=== PATIENT | female | born 1985 | race Caucasian/White ===

== ENCOUNTER → 2016-07-31 | Outpatient (CLI) | payer BC ==
[~2016-07-31] MED LIST: IBUP-1050 PO; PRENTAB26 PO
[2016-08-03 15:28] LABS: CHLAMYDIA TRACH RNA*** NOT DETECTED (NOT DETECTED); GC (NEIS GONORRHOEAE)RNA** NOT DETECTED (NOT DETECTED)
== END | disposition home or self-care (01) ==
LOC: C.LABSPEC 14:47
PROVIDERS: ATTEND Obstetrics & Gynecology
DX: Z34.81 Encounter for supervision of other normal pregnancy, first trimester (principal)

== ENCOUNTER 2017-03-03 05:32 | Inpatient (IN) | payer BC, OTHER ==
--- NOTE | 2017-02-13 15:59 | HISTORY & PHYSICAL EXAMINATION ---
DATE OF ADMISSION: 02/13/2017 CHIEF COMPLAINT: Two previous C-sections and intrauterine at term. HISTORY OF PRESENT ILLNESS: The patient is a 31-year-old 4, para 2. She has had one spontaneous AB. General health is good. She was dated with a first trimester ultrasound. Her due date is 03/09/2017. She has had no problems. Her first delivery was in 2011, girl, 9 pounds, induction at 41 weeks, pushed for several hours, was unable to get the baby to descend and then underwent a primary low segment section. Her second in 2013, she had high estimated weight at 39 weeks and eventually underwent repeat low segment section. She had a girl, 9 pounds 10 ounces. She is presently set for a repeat section at 39 weeks with a diagnosis of macrosomia and cephalopelvic disproportion. PAST MEDICAL HISTORY: She has 2 girls in good health. ALLERGIES: No known drug allergies. PAST SURGICAL HISTORY: She has had 2 C-sections. She had an adenoidectomy. SOCIAL HISTORY: No smoking. No excessive alcohol intake and no alcohol intake during her . Works at [employer]. FAMILY HISTORY: Mom is 56 in good health. Father is 70, has had several myocardial infarction. She has 1 brother in good health. REVIEW OF SYSTEMS: HEAD: No symptoms of frequent severe headaches. EYES: No symptoms of blurred vision or double vision. EARS: No symptoms of frequent ear infections or difficulty hearing. NOSE: No symptoms of frequent nosebleeds or difficulty breathing through her nose. THROAT: No symptoms of frequent or severe sore throats or difficulty swallowing. RESPIRATORY SYSTEM: No history of asthma, chest pain, or shortness of breath. PHYSICAL EXAMINATION: GENERAL: Well-developed and well-nourished 31-year-old white female, alert and oriented x3 and cooperative, in no acute distress, appears her stated age. EYES: Conjunctivae are pink. Sclerae white. No evidence of jaundice. EARS: Had normal light reflex bilaterally. NOSE: Had normal mucosa. Septum is midline. There were no polyps. THROAT: No erythema or evidence of infection. Teeth are in good state of repair. HEAD: Normocephalic. Normal distribution of hair. NECK: Supple. Trachea midline. Thyroid is not enlarged. There is no adenopathy appreciated. Both carotids are of good intensity. CHEST: Clear to auscultation and percussion. No wheezes, rales or rhonchi appreciated. HEART: Had a regular rhythm. S1 and S2 are normal. BREASTS: Normal. ABDOMEN: Soft and nontender. It was consistent with a term sized fetus, estimated weight well over 8 pounds. There was a well-healed Pfannenstiel incision. PELVIC: Revealed the vertex to be floating. Cervix to be posterior and closed. MUSCULOSKELETAL: Revealed no calf tenderness. IMPRESSIONS OF THIS CASE: Status post 2 sections, macrosomia, cephalopelvic disproportion and term .
[2017-02-24 13:05] VITALS: BMI 26.0
--- NOTE | 2017-02-24 13:29 | PAT Medication Instructions ---
Service Date Feb 24, 2017. Current Home Medication List Multivit/Min/Iron/Fol Ac/Pren ( Vitamin), 1 TAB PO QPM Medication Instructions For Your Scheduled Surgery - Take the following medications as scheduled the night before surgery: Multivit/Min/Iron/Fol Ac/Pren ( Vitamin), 1 TAB PO QPM If you have any questions please call us at [phone] or [phone] or [phone]
[2017-02-24 14:12] LABS: BASO % 0.2 %; BASO ABS # 0.02 K/uL (0-0.2); EOS % 0.9 %; HEMATOCRIT 24.9 % (37-47); IG% 0.4 %; LYMPH % 14.4 %; LYMPH ABS # 1.34 K/uL (1.2-3.4); MEAN CELL VOLUME 78.5 fL (80-100); MEAN CORPUSCULAR HGB CONC 30.5 g/dl (32-36); MONO % 7.1 %; PLATELET COUNT 224 K/uL (130-400); RED BLOOD COUNT 3.17 M/uL (4.2-5.4); WHITE BLOOD COUNT 9.32 K/uL (4.8-10.8)
[2017-02-24 14:15] LABS: CALCIUM 8.6 mg/dl (8.5-10.1); CREATININE 0.62 mg/dl (0.60-1.20); POTASSIUM 3.7 mmol/L (3.5-5.1)
[2017-02-24 14:24] LABS: INR 0.9 (0.9-1.1); PARTIAL THROMBOPLASTIN RATIO 0.9; PROTHROMBIN TIME (PATIENT) 9.6 SECONDS (9.0-12.0)
[2017-02-24 14:42] LABS: COMPLETE YES; LARGE PLATELETS 1+; OVALOCYTES 1+
[2017-03-03] VITALS (16 sets, daily range): BP systolic 117–134; BP diastolic 73–86; PULSE 67–80; TEMP 36.4–36.8; O2SAT 96–99; Ht 167.6 cm; Wt 72.7 kg
[~2017-03-03] VITALS: Ht 167.6 cm; Wt 72.7 kg
[~2017-03-03 05:32] MED LIST changes: -IBUP-1050 PO
[2017-03-03] MEDS ORDERED: CITRIC ACID/SODIUM CITRATE 15 ML UDC PO SCH (06:00)
[2017-03-03] MEDS ORDERED: CEFOXITIN IV 2000 MG in DEXTROSE 5% 50ML IV SCH (06:00)
[2017-03-03 06:03] LABS: BASO % 0.3 %; BASO ABS # 0.03 K/uL (0-0.2); EOS % 0.9 %; HEMATOCRIT 26.7 % (37-47); IG% 0.4 %; LYMPH % 21.1 %; LYMPH ABS # 2.17 K/uL (1.2-3.4); MEAN CELL VOLUME 76.7 fL (80-100); MEAN CORPUSCULAR HEMOGLOBIN 23.9 pg (25-34); MEAN PLATELET VOLUME 10.8 fL (7.4-10.4); MONO % 7.5 %; NEUT % 69.8 %; PLATELET COUNT 239 K/uL (130-400); RED BLOOD COUNT 3.48 M/uL (4.2-5.4); WHITE BLOOD COUNT 10.27 K/uL (4.8-10.8)
[2017-03-03 06:06] LABS: MEAN CORPUSCULAR HGB CONC 31.1 g/dl (32-36)
[2017-03-03] MEDS: LACTATED RINGER'S 1000ML 1,000 ML IV SCH ×2 (06:06→06:57)
[2017-03-03 06:20] LABS: BUN/CREATININE RATIO 22.3 (10-20); CALCIUM 8.9 mg/dl (8.5-10.1); CREATININE 0.56 mg/dl (0.60-1.20); INR 0.9 (0.9-1.1); PARTIAL THROMBOPLASTIN RATIO 0.9; POTASSIUM 3.8 mmol/L (3.5-5.1); PROTHROMBIN TIME (PATIENT) 9.5 SECONDS (9.0-12.0)
[2017-03-03 07:25] LABS: COMPLETE YES; MICROCYTOSIS PRESENT
[2017-03-03] MEDS ORDERED: MoRPHine SULFATE PF 1 MG/ML 10 ML AMP/VIAL ONE (07:25)
[2017-03-03] MEDS ORDERED: FENTANYL CITRATE INJ 50 MCG/1 ML 2 ML VIAL ONE (07:25)
[2017-03-03] MEDS ORDERED: OXYTOCIN INJ 10 UNITS/ML VIAL ONE ×3 (07:26→08:12)
[2017-03-03] MEDS ORDERED: PHENYLEPHRINE 100MCG/ML 5ML SYR ONE (07:46)
[2017-03-03] MEDS ORDERED: ONDANSETRON INJ 2 MG/ML 2 ML VIAL ONE (07:54)
[2017-03-03] MEDS ORDERED: OXYTOCIN INJ 10 UNITS/ML VIAL IM ONE (08:13)
[2017-03-03] MEDS ORDERED: MoRPHine SULFATE 2 MG/ML CARP IV PRN (08:15)
[2017-03-03] MEDS ORDERED: NALOXONE HCL INJ 1 MG in SODIUM CHLORIDE 0.9% 1000ML 1,000 ML IV PRN (08:15)
[2017-03-03] MEDS ORDERED: LACTATED RINGER'S 1000ML 500 ML IV PRN (08:15)
[2017-03-03] MEDS ORDERED: NO NARCOTICS OR SEDATIVES SCH (08:15)
[2017-03-03] MEDS ORDERED: EpHEDrine SULFATE INJ 50 MG/ML AMP IV PRN (08:15)
[2017-03-03] MEDS ORDERED: SODIUM CHLORIDE 0.9% 1000ML 1,000 ML IV PRN (08:15)
[2017-03-03] MEDS ORDERED: ONDANSETRON INJ 2 MG/ML 2 ML VIAL IV PRN ×2 (08:15→08:45)
[2017-03-03] MEDS ORDERED: DC INTRASPINAL MORPHINE SCH (08:15)
[2017-03-03] MEDS ORDERED: MoRPHine SULFATE PF 1 MG/ML 10 ML AMP/VIAL EPI PRN (08:15)
[2017-03-03] MEDS ORDERED: MEPERIDINE HCL 25 MG/ML CARP IV PRN (08:15)
[2017-03-03] MEDS ORDERED: DiphenhydrAMINE HCL 50 MG/ML VIAL IV PRN ×2 (08:15→08:45)
[2017-03-03] MEDS ORDERED: NALOXONE HCL 0.4 MG/1 ML VIAL/CARP IV PRN (08:15)
[2017-03-03] MEDS ORDERED: NALOXONE HCL INJ 0.08 MG in SYRINGE 1.8 ML IV PRN (08:15)
[2017-03-03] MEDS ORDERED: KETOROLAC TROMETHAMINE 30 MG/ML VIAL IV. PRN (08:45)
[2017-03-03] MEDS ORDERED: SENNA 8.6 MG TAB PO PRN (08:45)
[2017-03-03] MEDS ORDERED: ZOLPIDEM TARTRATE 5 MG TAB PO PRN (08:45)
[2017-03-03] MEDS ORDERED: OXYCODONE/ACETAMINOPHEN 5-325 TAB PO PRN (08:45)
[2017-03-03] MEDS ORDERED: BENZOCAINE 20% AER SPR 82.5 GM CAN EXT PRN (08:45)
[2017-03-03] MEDS ORDERED: DIPHTHERIA/TETANUS/PERTUSSIS 0.5 ML SYR/VIAL IM. ONE (08:45)
[2017-03-03] MEDS ORDERED: MAGNESIUM HYDROXIDE SUSP 30 ML UDC PO PRN (08:45)
[2017-03-03] MEDS ORDERED: MEPERIDINE HCL 50 MG/ML CARP IV PRN ×2 (08:45)
[2017-03-03] MEDS ORDERED: SUPERCREAM 0.870 % 15GM JAR EXT PRN (08:45)
[2017-03-03] MEDS ORDERED: LANOLIN OINT EXT PRN ×2 (08:45)
[2017-03-03] MEDS ORDERED: HYDROCORTISONE ACETATE 25 MG SUPP PR PRN (08:45)
--- NOTE | 2017-03-03 08:45 | History & Physical Bridge Note ---
H&P Re-Evaluation Bridge Note: I have examined the patient, reviewed the History & Physical and in the interval since the performance of the History & Physical I have noted the following changes of clinical significance: No changes noted
--- NOTE | 2017-03-03 08:55 | OPERATIVE REPORT ---
DATE OF OPERATION: 03/03/2017 PROCEDURE: Repeat section. INDICATIONS FOR SURGERY: Two previous sections, macrosomia, and a history of cephalopelvic disproportion. POSTOPERATIVE DIAGNOSES: Same. Delivered live female infant. SURGEON: Calvin Hayes MD POKER MANAGER: Dr. Sinclair. ESTIMATED BLOOD LOSS: 400 mL. ANESTHESIA: Spinal. OPERATIVE FINDINGS AND PROCEDURE: The patient was brought to the OR table, correctly identified by armband and conversation. Spinal anesthesia was administered. Bryant catheter was inserted aseptically in the bladder connected to gravity drainage. Lower abdomen was painted with an alcohol based sterilizing solution, draped in the usual sterile fashion. Level of the anesthesia was tested and found to be adequate. An incision was made through her previous Pfannenstiel scar, carried down to the anterior fascia by sharp dissection. Hemostasis was secured by electrocauterization. Fascia was incised transversely from the underlying muscle by blunt and sharp dissection. Recti muscles were in the midline exposing the peritoneum, which was carefully raised and entered. Incision was made above the vesicouterine fold. Bladder was undermined bluntly and pushed out of the operative field. Lower uterine segment was scored with a knife and entered bluntly with the scissors. Clear amnionic fluid was seen coming through the incision at this time. A Vectis retractor was applied to the head and with fundal pressure, the head was delivered without difficulty. was suctioned through the mouth and the nose. Then, the body was delivered. Cord was clamped and cut and the was attended to by the drug safety specialist, who was scrubbed and present at time of delivery. Cord blood was taken. Placenta was removed manually. Uterus, tubes, and ovaries were brought out through the incision. Uterine cavity was wiped clean with a dry sponge. Ten units of Pitocin was injected into the myometrium. The myometrium was then approximated in layers. The muscular layer was approximated with continuous heavy duty chromic and the fascial layer was approximated over this with horizontal and vertical sutures of heavy duty Vicryl. Following this, hemostasis was excellent. Lower uterine segment was palpated and found to be intact. Peritoneal edges were restored with a continuous chromic gut suture. The pelvis was cleansed of all blood clots and debris. Uterus, tubes, and ovaries were reinserted into the abdominal cavity. A careful approximation anterior abdominal wall was performed. Peritoneum was closed with continuous mattress suture of chromic catgut. Recti muscles were approximated with interrupted [id number]-[id number] suture of chromic catgut. The fascia was closed with continuous interlocking suture of Vicryl on each side and tied in the midline. SubQ was approximated with plain and skin edges were approximated with staple clips. I attest to the content of the Intraoperative Record and any orders documented therein. Any exception s are noted below.
--- NOTE | 2017-03-03 08:57 | Anesthesiology Progress Note ---
Anesthesia Post Op Note Date & Time Mar 03, 2017 at 08:56 Notes Mental Status: alert / awake / arousable, participated in evaluation Pt Amnestic to Procedure: Yes Nausea / Vomiting: adequately controlled Pain: adequately controlled Airway Patency, RR, SpO2: stable & adequate BP & HR: stable & adequate Hydration State: stable & adequate Neuraxial Anesthesia: was administered, sensory block is resolving Anesthetic Complications: no major complications apparent
[2017-03-03] MEDS: SIMETHICONE 80 MG CHEW PO SCH ×4 (09:00→19:37)
[2017-03-03] MEDS: KETOROLAC TROMETHAMINE 30 MG/ML VIAL IV. PRN ×3 (09:38→23:31)
[2017-03-03] MEDS: NALBUPHINE HCL INJ 10 MG/ML AMP IV PRN ×2 (10:19→10:31)
[2017-03-03] MEDS: OXYTOCIN INJ 20 UNITS in LACTATED RINGER'S 1000ML 1,000 ML IV SCH ×2 (14:09→22:23)
[2017-03-03] MEDS: DOCUSATE SODIUM 100 MG CAP PO SCH (19:37)
[2017-03-04 00:40] VITALS: O2SAT 93
[2017-03-04 01:40] VITALS: O2SAT 97
[2017-03-04 04:25] VITALS: BP 120/74; PULSE 89; TEMP 36.8
[2017-03-04] MEDS: IBUPROFEN 600 MG TAB PO PRN ×4 (04:32→18:42)
[2017-03-04] MEDS: OXYCODONE/ACETAMINOPHEN 5-325 TAB PO PRN ×4 (05:12→18:42)
[2017-03-04 08:00] VITALS: BP 115/71; PULSE 84; TEMP 36.8; O2SAT 96
[2017-03-04] MEDS: DOCUSATE SODIUM 100 MG CAP PO SCH ×2 (08:22→19:51)
[2017-03-04] MEDS: SIMETHICONE 80 MG CHEW PO SCH ×4 (08:22→19:51)
[2017-03-04] MEDS: PRENATAL VITAMIN TAB PO SCH (08:22)
[2017-03-04] MEDS: FERROUS SULFATE 325 MG TAB PO SCH (08:22)
--- NOTE | 2017-03-04 08:54 | Progress Note ---
Subjective Mar 04, 2017. Subjective conversation w/ patient Ambulation: ambulating normally Voiding: no voiding problems Passing Gas: Yes Diet Tolerance: Regular Diet Lochia: Small Feeding Type: Breast Feeding Review of Systems Constitutional: + fever Objective Vital Signs Date Time Temp Pulse Resp B/P (MAP) Pulse Ox O2 Delivery O2 Flow Rate FiO2 03/04/17 08:00 96 Room Air 03/04/17 08:00 36.8 84 18 115/71 (86) 96 Room Air 03/04/17 04:25 36.8 89 18 120/74 (89) Room Air 03/04/17 01:40 18 97 03/04/17 00:40 18 93 03/03/17 23:30 97 Room Air 03/03/17 23:30 36.7 76 18 129/80 (96) 97 Room Air 03/03/17 23:30 18 97 03/03/17 22:40 16 97 03/03/17 22:00 18 96 03/03/17 21:30 18 98 03/03/17 20:30 16 97 03/03/17 19:30 18 96 03/03/17 19:30 36.8 80 18 117/73 (88) 96 Room Air 03/03/17 19:10 18 98 03/03/17 18:10 16 97 03/03/17 16:00 16 99 03/03/17 15:45 36.5 73 16 133/79 (97) 98 Room Air 03/03/17 15:45 98 Room Air 03/03/17 15:00 18 99 03/03/17 14:00 18 99 03/03/17 13:00 16 99 03/03/17 12:30 Room Air 03/03/17 12:02 36.4 67 16 130/82 (98) 97 03/03/17 12:02 16 97 03/03/17 11:05 71 16 134/86 (102) 99 03/03/17 11:00 16 99 Physical Exam General Appearance: WELL-APPEARING Respiratory/Chest: lungs clear Abdomen: normal bowel sounds, non tender Fundus: Firm, Non-Tender Incision Description: Clean, Dry & Intact Extremities: no pedal edema, no calf tenderness Laboratory Results Last 24 Hours Test 03/04/17 06:00 Assessment and Plan Post-Op Day#: 1 Continue Routine Care: bandage removed
[2017-03-04 09:18] LABS: BASO % 0.3 %; BASO ABS # 0.03 K/uL (0-0.2); EOS % 0.3 %; HEMATOCRIT 24.4 % (37-47); IG% 0.3 %; LYMPH % 9.8 %; LYMPH ABS # 1.14 K/uL (1.2-3.4); MEAN CELL VOLUME 77.2 fL (80-100); MEAN CORPUSCULAR HEMOGLOBIN 23.7 pg (25-34); MEAN CORPUSCULAR HGB CONC 30.7 g/dl (32-36); MEAN PLATELET VOLUME 10.6 fL (7.4-10.4); MONO % 5.3 %; PLATELET COUNT 215 K/uL (130-400); RED BLOOD COUNT 3.16 M/uL (4.2-5.4); WHITE BLOOD COUNT 11.66 K/uL (4.8-10.8)
[2017-03-04 10:01] LABS: COMPLETE YES; LARGE PLATELETS 1+; POIKILOCYTOSIS PRESENT
[2017-03-04 16:00] VITALS: BP 143/78; PULSE 80; TEMP 36.6
[2017-03-04 19:15] VITALS: BP 132/78; PULSE 80; TEMP 36.7
[2017-03-04] MEDS ORDERED: BISACODYL 5 MG TABEC PO ONE (22:00)
[2017-03-05] MEDS: IBUPROFEN 600 MG TAB PO PRN ×3 (00:44→15:40)
[2017-03-05] MEDS: OXYCODONE/ACETAMINOPHEN 5-325 TAB PO PRN ×5 (00:45→23:46)
[2017-03-05 01:20] VITALS: BP 134/76; PULSE 85; TEMP 37
[2017-03-05 07:00] VITALS: BP 124/78; PULSE 78; TEMP 36.9; O2SAT 97
[2017-03-05] MEDS: DOCUSATE SODIUM 100 MG CAP PO SCH ×2 (08:12→19:21)
[2017-03-05] MEDS: PRENATAL VITAMIN TAB PO SCH (08:12)
[2017-03-05] MEDS: SIMETHICONE 80 MG CHEW PO SCH ×4 (08:12→19:22)
[2017-03-05] MEDS: FERROUS SULFATE 325 MG TAB PO SCH (08:12)
[2017-03-05] MEDS ORDERED: BISACODYL 10 MG SUPP PR PRN (08:45)
--- NOTE | 2017-03-05 10:10 | Progress Note ---
Subjective Mar 05, 2017. Subjective conversation w/ patient Ambulation: ambulating normally Voiding: no voiding problems Passing Gas: Yes Diet Tolerance: Regular Diet Lochia: Small Feeding Type: Breast Feeding Review of Systems Constitutional: + fever Objective Vital Signs Date Time Temp Pulse Resp B/P (MAP) Pulse Ox O2 Delivery O2 Flow Rate FiO2 03/05/17 07:00 36.9 78 18 124/78 (93) 97 Room Air 03/05/17 01:20 37.0 85 16 134/76 (95) Room Air 03/05/17 01:20 Room Air 03/04/17 19:15 36.7 80 18 132/78 (96) Room Air 03/04/17 16:00 36.6 80 16 143/78 (99) Room Air 03/04/17 16:00 Room Air Physical Exam General Appearance: WELL-APPEARING Abdomen: normal bowel sounds, non tender Fundus: Firm, Non-Tender Incision Description: Clean, Dry & Intact Extremities: no pedal edema, no calf tenderness Assessment and Plan Post-Op Day#: 2
[2017-03-05 15:45] VITALS: BP 144/83; PULSE 87; TEMP 37; O2SAT 98
[2017-03-05 23:30] VITALS: BP 127/82; PULSE 77; TEMP 36.6; O2SAT 98
[2017-03-06] MEDS: IBUPROFEN 600 MG TAB PO PRN ×2 (02:31→09:41)
[2017-03-06] MEDS: OXYCODONE/ACETAMINOPHEN 5-325 TAB PO PRN (07:08)
[2017-03-06 08:00] VITALS: BP 122/75; PULSE 87; TEMP 36.7
[2017-03-06] MEDS: DOCUSATE SODIUM 100 MG CAP PO SCH (08:21)
[2017-03-06] MEDS: SIMETHICONE 80 MG CHEW PO SCH (08:21)
[2017-03-06] MEDS: FERROUS SULFATE 325 MG TAB PO SCH (08:21)
[2017-03-06] MEDS: PRENATAL VITAMIN TAB PO SCH (08:21)
--- NOTE | 2017-03-06 08:37 | Discharge Instructions ---
Discharge Instructions Date of Service Mar 06, 2017. Admission Reason for Admission: Repeat Discharge Discharge Diagnosis / Problem: term elective repeat Discharge Goals Goal(s): Routine recovery after Activity Recommendations Activity Limitations: as noted below Lifting Limitations: no more than 10 pounds Exercise/Sports Limitations: gradually increase as tolerated May Resume Sexual Activity: after follow-up appointment Shower/Bathe: no limitations Driving or Machine Use: resume 3 days after discharge . Instructions / Follow-Up Instructions / Follow-Up ACTIVITY RECOMMENDATIONS: * Gradual return to full activity over the next 2-3 weeks. * No lifting - nothing heavier than baby over the next 2-3 weeks. * Do not engage in vigorous exercise, sexual activity or sports until cleared by your physician. * Do not drive or operate any motorized equipment until cleared by your physician. * You may shower/bathe daily. BREAST CARE: If you are not breast feeding: * Wear a supportive bra 24 hours a day for one to two weeks. * Avoid stimulating your breasts and nipples as much as possible during the first few weeks after delivery. * When taking a shower, have the warm water hit your back, not breasts. * When your breasts feel full, apply ice packs. Usually three to four times a day helps ease the discomfort. * Take a mild pain medication (Tylenol/Motrin) when you are uncomfortable. If breast feeding: * Use breast milk to lubricate nipples. Lansinoh cream may be used for sore nipples. You do not need to remove cream prior to breast feeding. If using a different brand of cream, check the label for directions regarding removal of cream prior to nursing. * Wear a supportive bra. * If having problems with breasts or breast feeding, call a image consultant or your health care provider. OVER THE COUNTER MEDICATION: * For discomfort or pain, you may use Acetaminophen (Tylenol), Ibuprofen (Advil ), or Naproxen (Aleve) following the package directions. * For constipation you may use Colace following the package directions. SPECIAL CARE INSTRUCTIONS: When you are discharged from the hospital, it is important for you to follow the instructions listed below: * During the first week at home, you should be able to care for yourself and your baby. In addition, the usual light household activities are encouraged. * Limit your activities to the way you feel. Do not try to clean the house or move furniture. Be sensible. * If you actively engage in sports and have done so up until the time of your delivery, you may resume these activities as soon as you feel able. This may take up to one month or even longer. Use good judgment. * Continue to take your vitamins for at least six weeks after the of your baby. * Your diet need not be limited unless you were on a special diet before your delivery. Breast-feeding mothers need around 2500 calories per day and at least 64-80 ounces of fluid per day (8 to 10 glasses). * You should eat foods from the four major food groups. Crash diets or fad diets are to be avoided. Eating lean meats, fresh fruits and vegetables, low-fat dairy products, high fiber foods and a regular exercise program, will help you get back to your pre- weight without putting your health at risk. * Constipation is sometimes a problem after delivery. Take a mild laxative as needed. If breast feeding, Milk of Magnesia is acceptable to use. You may use a suppository or Fleets enema if no episiotomy. * A daily shower or tub bath is suggested. Be sure to thoroughly and gently dry the perineum. * A bloody vaginal discharge will usually continue until around four weeks post . A small amount of bleeding may continue for as long as six weeks. Vaginal discharge changes from the bright red bleeding after delivery to pink then brownish and finally yellowish-pink before becoming white and disappearing. * Bleeding may increase with activity. Your first period may come in 4-8 weeks. If you are breast feeding, your period may be delayed even longer. * Artemus (sex) can begin whenever both you and your partner feel comfortable and do not have any form of genital infection. It is recommended that you wait at least six weeks for internal and external healing to occur. If you have questions, please talk to your health care practitioner. A condom should be used to prevent infection and . * Foreplay, gentle intercourse and lubrication is very important the first several times to prevent pain. A water-based lubricant such as K-Y jelly or Astroglide may be used. * Tampons and/or Douching should be avoided until after six weeks check-up. * If you have RH negative blood and your baby is RH positive, you will receive RHOGAM by injection prior to discharge. The nurse will give you a card to keep with you that has the date and place that you received RHOGAM after delivery. * During your care, you had a Rubella screen done to check for the presence of rubella antibodies in your blood. If your test was negative, you will receive a Rubella vaccine prior to discharge. This vaccine may cause a fever, soreness at the injection site and flu-like symptoms. If these symptoms persist, notify your health care practitioner. is not advised for three months after a Rubella vaccine. * Verbalizes understanding of car seat law as reviewed with patient nursing. * Car Seat hand-out given and reviewed with patient by nursing. * Shaken baby information reviewed with patient by nursing. Call you doctor if: * Heavy bleeding (saturating several pads an hour) or passing clots the size of your fist. * A fever >101 degrees F (38.3 degrees C) on two occasions four hours apart and /or chills. * Unusual pain in the pelvic or vaginal areas. Pain should improve each day . * Call the doctor for any increased redness, drainage or swelling around the incision and any pain unrelieved by prescribed pain medication. * Any signs or symptoms of phlebitis (possible blood clots forming in the veins ): leg pain, warm, red or swollen area on leg. * "Baby Blues" lasting longer than two weeks. If you have any questions or concerns, call your health care practitioner at . FOLLOW-UP VISIT: * Incision check (staple removal) in 1 week. Please call doctor's office at to set up appointment. * Please call the office at to schedule a 6 week examination. It is important you keep this appointment. * It is important for you to make arrangements for either yearly or twice yearly check-ups thereafter. Current Hospital Diet Patient's current hospital diet: Regular OB Diet Discharge Diet Recommended Diet: Regular Diet Fluid Restriction: None Procedures Procedures Performed: Repeat caesarean section. Low uterine transverse incision. Delivery of live female child at 0801. Pending Studies Studies pending at discharge: no Medical Emergencies . Who to Call and When: Medical Emergencies: If at any time you feel your situation is an emergency, please call [phone] immediately. . Non-Emergent Contact Non-Emergency issues call your: Primary Care Provider . . "Provider Documentation" section prepared by Jordan Pascual. . VTE Core Measure Inpt VTE Proph given/why not?: Treatment not indicated, Treatment not tolerated
--- NOTE | 2017-03-06 08:39 | Surgery Progress Note ---
Surgery Progress Note Date of Service Mar 06, 2017. Subjective Post OP Day: 3 + feeling well, + ambulating, + flatus, + pain controlled, + diet Objective Vital Signs: Date Time Temp Pulse Resp B/P (MAP) Pulse Ox O2 Delivery O2 Flow Rate FiO2 03/06/17 08:00 36.7 87 18 122/75 (91) Room Air 03/05/17 23:30 98 Room Air 03/05/17 23:30 36.6 77 18 127/82 (97) Room Air 03/05/17 15:45 37.0 87 20 144/83 (103) 98 Room Air 03/05/17 15:45 Room Air General Appearance: no apparent distress Abdomen: non tender, non distended Incision(s): clean, dry, intact Extremities: non-tender, normal inspection, no pedal edema Assessment & Plan POD#3 discharged regular diet
[2017-03-06 10:30] VITALS: BP_DIAS 75; PULSE 87; TEMP 36.7
== END 2017-03-06 10:45 | disposition home or self-care (01) | DRG 766 ==
LOC: C.LD 05:32 → C.OBG 11:14 → EDSTATUS 13:43
PROVIDERS: ADMIT Obstetrics & Gynecology; ATTEND Obstetrics & Gynecology
PROC: 10D00Z1 Extraction of Products of Conception, Low, Open Approach (ICD-10-PCS; principal; 2017-03-03 07:30)
DX: O34.211 Maternal care for low transverse scar from previous cesarean delivery (principal); Z3A.39 39 weeks gestation of pregnancy; Z37.0 Single live birth

== ENCOUNTER 2017-03-25 00:28 | Emergency (ER) | payer BC, OTHER ==
[~2017-03-25] VITALS: Ht 172.7 cm; Wt 62.8 kg
[2017-03-25 00:36] VITALS: TEMP 36.7; Ht 172.7 cm; Wt 62.8 kg
[2017-03-25] MEDS ORDERED: LACTATED RINGER'S 1000ML 1,000 ML IV STA (00:57)
[2017-03-25 01:13] LABS: BASO % 0.5 %; BASO ABS # 0.04 K/uL (0-0.2); COMPLETE YES; EOS % 1.6 %; HEMATOCRIT 31.3 % (37-47); IG% 0.1 %; LYMPH % 28.2 %; LYMPH ABS # 2.41 K/uL (1.2-3.4); MEAN CELL VOLUME 76.9 fL (80-100); MEAN CORPUSCULAR HEMOGLOBIN 24.1 pg (25-34); MEAN CORPUSCULAR HGB CONC 31.3 g/dl (32-36); MEAN PLATELET VOLUME 9.9 fL (7.4-10.4); MONO % 6.1 %; NEUT % 63.5 %; PLATELET COUNT 373 K/uL (130-400); RED BLOOD COUNT 4.07 M/uL (4.2-5.4); WHITE BLOOD COUNT 8.55 K/uL (4.8-10.8)
[2017-03-25 01:15] LABS: ISTAT CREATININE 0.8 mg/dl (0.6-1.3); ISTAT HEMOGLOBIN 9.9 g/dl (12.0-16.0); ISTAT IONIZED CALCIUM 1.2 mmol/l (1.12-1.32)
[2017-03-25 01:18] VITALS: O2SAT 99
[2017-03-25 01:24] LABS: PARTIAL THROMBOPLASTIN RATIO 1.1; PROTHROMBIN TIME (PATIENT) 10.4 SECONDS (9.0-12.0)
[2017-03-25 01:36] LABS: BUN/CREATININE RATIO 19.8 (10-20); CALCIUM 8.9 mg/dl (8.5-10.1); CREATININE 0.79 mg/dl (0.60-1.20); POTASSIUM 3.6 mmol/L (3.5-5.1)
[2017-03-25 01:39] LABS: ALB/GLOB RATIO 0.7 (0.9-2)
[2017-03-25 03:02] LABS: URINE APPEARANCE CLEAR (CLEAR); URINE BILIRUBIN NEG (NEG); URINE COLOR YELLOW; URINE EPITHELIAL CELL AUTO 0-5 /lpf (0-5); URINE NITRITE NEG (NEG); URINE SPECIFIC GRAVITY 1.009 (1.000-1.030); UROBILINOGEN NEG (NEG); ZZUR CULT IF INDIC CLEAN CATCH NO
[2017-03-25 03:03] LABS: MANUAL MICROSCOPIC REQUIRED? NO; REVIEW REQ? NO
--- NOTE | 2017-03-25 04:10 | EMERGENCY ROOM VISIT NOTE ---
History First contact with patient: 00:46 Chief Complaint: ED VAG BLEEDING Stated Complaint: LOOSING LOTS OF BLOOD History of Present Illness The patient is a 31 year old female who presents to the Emergency Room with complaints of heavy vaginal bleeding for the past few hours at a [address] Hayes is her MONOTYPE MECHANIC. . No complications with the C- section. Patient states she's had minimal bleeding since the and then tonight was much worse. She felt slightly lightheaded. Patient denies chest pain, dyspnea, back pain, abdominal pain, urinary symptoms, fever, chills. No injury or intercourse since the . Review of Systems See HPI for pertinent positives & negatives. A total of 10 systems reviewed and were otherwise negative. Past Medical/Surgical History none Social History Smoking Status: Never Smoker Smokeless Tobacco Use: No Alcohol Use: occasionally Drug Use: none Marital Status: Housing Status: lives with family Occupation Status: [employer] student Current/Historical Medications Scheduled Multivit/Min/Iron/Fol Ac/Pren ( Vitamin), 1 TAB PO QPM Physical Exam Vital Signs Date Time Temp Pulse Resp B/P (MAP) Pulse Ox O2 Delivery O2 Flow Rate FiO2 03/25/17 02:48 79 16 124/77 99 Room Air 03/25/17 01:18 99 Room Air 03/25/17 00:36 36.7 96 20 144/88 100 Room Air Physical Exam VITALS: Vitals are noted on the nurse's note and reviewed by myself. Vital signs stable. GENERAL: Pleasant female, in no acute distress, nondiaphoretic, well-developed well-nourished. SKIN: Capillary reflex less than 2 seconds. HEENT: Normocephalic. PERRLA. EOMI. Nares patent. Mucous membranes moist. Neck is supple without nuchal rigidity. HEART: Regular rate and rhythm without murmurs gallops or rubs. LUNGS: Clear to auscultation bilaterally without wheezes, rales or rhonchi. No retractions or accessory muscle use. ABDOMEN: Positive bowel sounds x 4. Normal tympanic percussion. Soft, nontender, without masses or organomegaly. Prado sign negative. No guarding or rebound tenderness. No CVA tenderness exam: Normal external female genitalia, minimal blood in the vault, os is closed. Airline Customer Service Agent present. MUSCULOSKELETAL: No gross musculoskeletal defects. NEURO: Patient was alert and oriented to person place and time. Normal sensation to light and sharp touch. No focal neurological deficits. Medical Decision & Procedures Laboratory Results 03/25/17 00:55 Red Blood Count 4.07, Mean Corpuscular Volume 76.9, Mean Corpuscular Hemoglobin 24.1, Mean Corpuscular Hemoglobin Concent 31.3, Mean Platelet Volume 9.9, Neutrophils (%) (Auto) 63.5, Lymphocytes (%) (Auto) 28.2, Monocytes (%) (Auto) 6.1, Eosinophils (%) (Auto) 1.6, Basophils (%) (Auto) 0.5, Neutrophils # (Auto) 5.43, Lymphocytes # (Auto) 2.41, Monocytes # (Auto) 0.52, Eosinophils # (Auto) 0.14, Basophils # (Auto) 0.04 03/25/17 00:55 Test 03/25/17 00:55 03/25/17 01:03 03/25/17 02:06 White Blood Count 8.55 K/uL (4.8-10.8) Red Blood Count 4.07 M/uL (4.2-5.4) Hemoglobin 9.8 g/dL (12.0-16.0) Hematocrit 31.3 % (37-47) Mean Corpuscular Volume 76.9 fL (80-100) Mean Corpuscular Hemoglobin 24.1 pg (25-34) Mean Corpuscular Hemoglobin Concent 31.3 g/dl (32-36) Platelet Count 373 K/uL (130-400) Mean Platelet Volume 9.9 fL (7.4-10.4) Neutrophils (%) (Auto) 63.5 % Lymphocytes (%) (Auto) 28.2 % Monocytes (%) (Auto) 6.1 % Eosinophils (%) (Auto) 1.6 % Basophils (%) (Auto) 0.5 % Neutrophils # (Auto) 5.43 K/uL (1.4-6.5) Lymphocytes # (Auto) 2.41 K/uL (1.2-3.4) Monocytes # (Auto) 0.52 K/uL (0.11-0.59) Eosinophils # (Auto) 0.14 K/uL (0-0.5) Basophils # (Auto) 0.04 K/uL (0-0.2) RDW Standard Deviation 47.6 fL (36.4-46.3) RDW Coefficient of Variation 16.9 % (11.5-14.5) Immature Granulocyte % (Auto) 0.1 % Immature Granulocyte # (Auto) 0.01 K/uL (0.00-0.02) Prothrombin Time 10.4 SECONDS (9.0-12.0) Prothromb Time International Ratio 1.0 (0.9-1.1) Activated Partial Thromboplast Time 27.5 SECONDS (21.0-31.0) Partial Thromboplastin Ratio 1.1 Est Creatinine Clear Calc Drug Dose 101.4 ml/min Estimated GFR () 114.8 Estimated GFR (Non- 99.1 BUN/Creatinine Ratio 19.8 (10-20) Calcium Level 8.9 mg/dl (8.5-10.1) Total Bilirubin 0.4 mg/dl (0.2-1) Aspartate Amino Transf (AST/SGOT) 13 U/L (15-37) Alanine Aminotransferase (ALT/SGPT) 15 U/L (12-78) Alkaline Phosphatase 119 U/L (45-117) Total Protein 7.8 gm/dl (6.4-8.2) Albumin 3.3 gm/dl (3.4-5.0) Globulin 4.5 gm/dl (2.5-4.0) Albumin/Globulin Ratio 0.7 (0.9-2) Bedside Hemoglobin 9.9 g/dl (12.0-16.0) Bedside Hematocrit 29 % (37-47) Bedside Sodium 139 mEq/L (135-144) Bedside Potassium 3.7 mEq/L (3.3-5.0) Bedside Chloride 101 mEq/L (101-112) Bedside Total CO2 27 mEq/l (24-31) Anion Gap 16.0 mmol/L (16-25) Bedside Blood Urea Nitrogen 15 mg/dl (7-18) Bedside Creatinine 0.8 mg/dl (0.6-1.3) Bedside Glucose (other) 113 mg/dl (70-99) Bedside Ionized Calcium ([place]) 1.20 mmol/l (1.12-1.32) Urine Color YELLOW Urine Appearance CLEAR (CLEAR) Urine pH 7.0 (4.5-7.5) Urine Specific [place] 1.009 (1.000-1.030) Urine Protein NEG (NEG) Urine Glucose (UA) NEG (NEG) Urine Ketones NEG (NEG) Urine Occult Blood 2+ (NEG) Urine Nitrite NEG (NEG) Urine Bilirubin NEG (NEG) Urine Urobilinogen NEG (NEG) Urine Leukocyte Esterase SMALL (NEG) Urine WBC (Auto) 1-5 /hpf (0-5) Urine RBC (Auto) 0-4 /hpf (0-4) Urine Hyaline Casts (Auto) 0 /lpf (0-5) Urine Epithelial Cells (Auto) 0-5 /lpf (0-5) Urine Bacteria (Auto) NEG (NEG) Medications Administered Medications (Trade) Dose Ordered Sig/Natalie Route Start Time Stop Time Status Last Admin Dose Admin Lactated Ringer's 1,000 ml @ 0 mls/hr Q0M STAT IV 03/25/17 00:57 03/25/17 00:58 DC 03/25/17 01:23 999 MLS/HR ED Course Prior records/ancillary studies reviewed. Triage Nursing notes reviewed. Additional history obtained from the family. The patient's history was concerning for vaginal bleeding status post Differential diagnosis: Etiologies such as retained products of conception, menstrual cycle, endometritis, dysfunction uterine bleeding, bleeding dyscrasia, trauma, infection, as well as others were entertained. Physical examination: As above. Vitals signs revealed stable ER treatment provided: IV fluids On reassessment the patient felt better. Diagnostic interpretation by me: The labs revealed B+ blood type. Improving anemia Imaging studies: Ultrasound as above US PELVIS: Compared with 04/22/11. History of 03/03/17 Boggy prominent uterus. Retroverted uterus. Endometrial stripe thickness within normal limits. No vascularity to suggest RPOC. Focal hypoechoic 1.9 x 1.3 x 3.4 cm l region anterior lower uterus segment, likely postsurgical region of . Maybe a small hematoma or seroma. Hypervascular lesion in the left uterus measuring 5.4 x 2.7 x 2.4 cm, may be adnexal versus possible fibroid. Possible pelvic congestion syndrome. The ovaries are not visualized due to bowel gas. This appears to be consistent with dysfunctional uterine bleeding. Patient's anemia was improving. She had minimal bleeding on exam. Stable vital signs. She did not have an acute abdomen on exam. She is advised to follow-up with OB/ AUTO BODY REPAIR ESTIMATOR a few days or here in the ER sooner for heavy bleeding, fevers, weakness, worsening signs or symptoms or as needed. By the evaluation outlined above emergent etiologies such as bleeding dyscrasia, ectopic , trauma, as well as others were deemed relatively unlikely. The pt informed about the findings as listed above. All questions were answered and pleased with the treatment. Return instructions were outlined and the patient was discharged in stable condition. Referral: The patient was referred to MONOTYPE MECHANIC for follow-up in 2 to 3 days for a recheck of her current condition. Case reviewed with my attending. Medical Decision as above Medication Reconcilliation Current Medication List: was personally reviewed by me Blood Pressure Screening Patient's blood pressure: Elevated blood pressure Blood pressure disposition: Elevated BP felt to be situational Impression Primary Impression: Dysfunctional uterine bleeding Departure Information Dispostion Home / Self-Care Condition GOOD Referrals No Doctor, Assigned (PCP) Patient Instructions My [facility] Additional Instructions Rest. Stay well hydrated. No strenuous activity or intercourse until cleared by MONOTYPE MECHANIC. Acetaminophen(Tylenol) may be used for fever or pain. Use 1000mg every six hours as needed. Avoid using more than 3000mg in a 24 hour period. Rest and drink plenty of fluids as tolerated. Continue current medications. Return to the ER immediately for worsening or persistent heavy vaginal bleeding , abdominal pain, vomiting, fevers, chest pains, difficulty breathing, worsening of your condition, or as needed. Follow up with your MONOTYPE MECHANIC in 2-3 days for a recheck of your current condition.
[2017-03-25 04:17] VITALS: BP 126/72; PULSE 80; O2SAT 98
--- NOTE | 2017-03-25 06:53 | DIAGNOSTIC IMAGING REPORT ---
PELVIC COMPLETE NON OB HISTORY: 31 years-old Female c section 3 weeks ago, heavy bleed/pain acute vaginal bleeding with history of on 03/03/2017 COMPARISON: Pelvic ultrasound 04/22/2011 TECHNIQUE: Multiple real-time sonographic images of the deep pelvic structures were obtained transabdominally assessing grayscale appearance and color Doppler flow. Transvaginal images were not obtained. FINDINGS: Retroflexed uterus measures 10.9 x 6.0 x 6.0 cm. ill-defined area of decreased echogenicity is seen within the anterior aspect of the lower uterine segment, 1.9 x 1.3 x 3.4 cm as seen on image 16. There is a focal area of increased flow within the region of the left uterus and left adnexa without discrete masses identified suggesting prominent vascularity. Endometrium measures 0.5 cm. No evidence of retained products of conception. Ovaries obscured by bowel gas. No significant free pelvic fluid. IMPRESSION: 1. Normal sonographic appearance of the endometrium without evidence of retained products of conception. 2. retroflexed uterus with a ill-defined hypoechoic region of the anterior lower uterine segment measuring up to 3.4 cm within the region of the scar suggesting hematoma or seroma. 3. Ill-defined area of increased vascularity within the region of the left uterus/left adnexum suggests prominent adnexal vascularity without discrete mass identified. Pelvic venous congestion syndrome is a differential consideration. 4. Bilateral ovaries obscured by bowel gas. The above report was generated using voice recognition software. It may contain grammatical, syntax or spelling errors. Electronically signed by: Juvenal Lang M.D. 03/25/2017 6:51 AM Dictated Date/Time: 03/25/2017 6:44 AM
== END 2017-03-25 04:23 | disposition home or self-care (01) ==
LOC: C.EDB 00:29 → C.EDA 04:23
DX: N93.8 Other specified abnormal uterine and vaginal bleeding (principal)

== ENCOUNTER 2017-03-30 17:06 | Emergency (ER) | payer BC, OTHER ==
[~2017-03-30] VITALS: Ht 180.3 cm; Wt 65.0 kg
[~2017-03-30 17:06] MED LIST changes: +NORETHINDRONE ACETATE 5 MG TAB PO SCH
[2017-03-30 17:10] VITALS: Ht 180.3 cm; Wt 65.0 kg
[2017-03-30] MEDS ORDERED: KETOROLAC TROMETHAMINE 30 MG/ML VIAL IV STA (17:17)
[2017-03-30] MEDS ORDERED: SODIUM CHLORIDE 0.9% 1000ML 1,000 ML IV STA (17:17)
--- NOTE | 2017-03-30 17:25 | EMERGENCY ROOM VISIT NOTE ---
History Report prepared by Reece: Angelica Espinosa Under the Supervision of: Dr. Owne Fowler M.D. 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 The patient recently had a section without complications. The patient reports that she suddenly felt abdominal pain and increased vaginal bleeding. She currently rates her pain a 5/10 in severity. After cleaning up the blood from the bathroom, her helped her to the bed. She suddenly felt increased nausea, dizziness, a whistle in her ears, and then she passed out on the bed. She denies any head injuries, urinary symptoms, vomiting, or diarrhea. She was recently seen in the ED March 25, 2017 for similar symptoms. She notes /A1. Source of History: patient Onset: March 03, 2017 SOLUTIONS DEVELOPMENT ANALYST Position: other (vagina) Symptom Intensity: 5/10 Quality: other (vaginal bleeding) Timing: intermittent Associated Symptoms: + nausea, + abdominal pain, No vomiting, No diarrhea, No urinary symptoms Note: She notes increased vaginal bleeding. She notes dizziness, a whistle in my ears, and syncope. She denies any head injuries. Review of Systems See HPI for pertinent positives & negatives. A total of 10 systems reviewed and were otherwise negative. Past Medical & Surgical Medical Problems: (1) Migraine (2) Previous section complicating (3) PREVIOUS CESAREANSECTION (4) PREVIOUS CESAREANSECTION Family History No pertinent family history reported. Social History Smoking Status: Never Smoker Alcohol Use: occasionally Drug Use: none Marital Status: Housing Status: lives with family Occupation Status: [employer] student Current/Historical Medications Scheduled Iron-Vitamin C (Iron 100/C), 1 TAB PO DAILY Multivit/Min/Iron/Fol Ac/Pren ( Vitamin), 1 TAB PO QPM Allergies Coded Allergies: [place] (Verified Allergy, Unknown, itchiness in throat and tongue, ) [place] (Verified Allergy, Unknown, itchiness throat and tongue and some swelling, 03/30/17) Physical Exam Vital Signs Date Time Temp Pulse Resp B/P (MAP) Pulse Ox O2 Delivery O2 Flow Rate FiO2 03/30/17 19:40 36.8 90 16 119/67 99 Room Air 12/17/17 17:45 86 03/30/17 17:10 103 16 108/72 99 Room Air Physical Exam GENERAL: Patient is in no acute distress. HEENT: No acute trauma, normocephalic atraumatic, mucous membranes moist, no nasal congestion, no scleral icterus. NECK: No stridor, no adenopathy, no meningismus, trachea is midline. LUNGS: Clear to auscultation bilaterally, no wheeze, no rhonchi, breath sounds equal. HEART: Without murmurs gallops or rubs, regular rate and rhythm. ABDOMEN: Soft, tender to lower abdomen/pelvis bilaterally, bowel sounds positive , no hernias, no peritonitis. VAGINAL: (Female coffee shop manager present) Removed a large clot from vaginal vault; suction, q-tips, and ring forceps were used. Bleeding from cervix is minimal. EXTREMITIES: No cyanosis or edema, full range of motion of all the joints without pain or difficulty, no signs for acute trauma. NEUROLOGIC: Oriented x 3, no acute motor or sensory deficits, no focal weakness. SKIN: No rash, no jaundice, no diaphoresis. Medical Decision & Procedures ER Provider Diagnostic Interpretation: Radiology results as stated below per my review and radiologist interpretation: PELVIC COMPLETE NON OB CLINICAL HISTORY: 31 years-old Female presenting with s/p March 03, heavy vaginal bleeding. TECHNIQUE: Real-time grayscale and color and spectral Doppler ultrasound imaging of the pelvis was performed using a transabdominal probe. COMPARISON: 03/25/2017. FINDINGS: Uterus: Heterogeneous with prominent vascularity on color Doppler, expected in the period. Retroverted. Focal hypodensity along the anterior aspect of the lower uterine segment from section with expected seroma/hematoma. The uterus measures 9.7 x 5.2 x 6.9 cm. Endometrial stripe measures 6 mm in thickness. Endometrium without focal increased vascularity to suggest retained products of conception. Cervix normal. Right adnexa: Right ovary normal. Right ovary measures 2.0 x 1.9 x 1.7 cm. Normal color Doppler flow and arterial and venous waveforms within the ovarian parenchyma. Left adnexa: Left ovary normal. Left ovary measures 3.4 x 1.6 x 1.4 cm. Normal color Doppler flow and arterial and venous waveforms within the ovarian parenchyma. Other: No free fluid. IMPRESSION: Expected appearance of the uterus with hyperemia and surgical scar. No evidence of retained products of conception allowing for transabdominal technique. Electronically signed by: Fahad Hughes M.D. 03/30/2017 6:48 PM Dictated Date/Time: 03/30/2017 6:43 PM Laboratory Results 03/30/17 17:30 Red Blood Count 3.97, Mean Corpuscular Volume 76.1, Mean Corpuscular Hemoglobin 23.2, Mean Corpuscular Hemoglobin Concent 30.5, Mean Platelet Volume 9.9, Neutrophils (%) (Auto) 63.8, Lymphocytes (%) (Auto) 27.8, Monocytes (%) (Auto) 6.3, Eosinophils (%) (Auto) 1.6, Basophils (%) (Auto) 0.4, Neutrophils # (Auto) 5.18, Lymphocytes # (Auto) 2.26, Monocytes # (Auto) 0.51, Eosinophils # (Auto) 0.13, Basophils # (Auto) 0.03 03/30/17 17:30 Test 03/30/17 17:30 03/30/17 17:55 White Blood Count 8.12 K/uL (4.8-10.8) Red Blood Count 3.97 M/uL (4.2-5.4) Hemoglobin 9.2 g/dL (12.0-16.0) Hematocrit 30.2 % (37-47) Mean Corpuscular Volume 76.1 fL (80-100) Mean Corpuscular Hemoglobin 23.2 pg (25-34) Mean Corpuscular Hemoglobin Concent 30.5 g/dl (32-36) Platelet Count 348 K/uL (130-400) Mean Platelet Volume 9.9 fL (7.4-10.4) Neutrophils (%) (Auto) 63.8 % Lymphocytes (%) (Auto) 27.8 % Monocytes (%) (Auto) 6.3 % Eosinophils (%) (Auto) 1.6 % Basophils (%) (Auto) 0.4 % Neutrophils # (Auto) 5.18 K/uL (1.4-6.5) Lymphocytes # (Auto) 2.26 K/uL (1.2-3.4) Monocytes # (Auto) 0.51 K/uL (0.11-0.59) Eosinophils # (Auto) 0.13 K/uL (0-0.5) Basophils # (Auto) 0.03 K/uL (0-0.2) RDW Standard Deviation 46.5 fL (36.4-46.3) RDW Coefficient of Variation 16.7 % (11.5-14.5) Immature Granulocyte % (Auto) 0.1 % Immature Granulocyte # (Auto) 0.01 K/uL (0.00-0.02) Anion Gap 7.0 mmol/L (3-11) Est Creatinine Clear Calc Drug Dose 97.5 ml/min Estimated GFR () 105.1 Estimated GFR (Non- 90.7 BUN/Creatinine Ratio 27.7 (10-20) Calcium Level 8.4 mg/dl (8.5-10.1) Total Bilirubin 0.4 mg/dl (0.2-1) Aspartate Amino Transf (AST/SGOT) 17 U/L (15-37) Alanine Aminotransferase (ALT/SGPT) 18 U/L (12-78) Alkaline Phosphatase 105 U/L (45-117) Total Protein 7.3 gm/dl (6.4-8.2) Albumin 3.2 gm/dl (3.4-5.0) Globulin 4.1 gm/dl (2.5-4.0) Albumin/Globulin Ratio 0.8 (0.9-2) Prothrombin Time 10.4 SECONDS (9.0-12.0) Prothromb Time International Ratio 1.0 (0.9-1.1) Activated Partial Thromboplast Time 22.4 SECONDS (21.0-31.0) Partial Thromboplastin Ratio 0.9 Laboratory results reviewed by me. Medications Administered Medications (Trade) Dose Ordered Sig/Natalie Route Start Time Stop Time Status Last Admin Dose Admin Sodium Chloride 1,000 ml @ 999 mls/hr Q1H1M STAT IV 03/30/17 17:17 03/30/17 18:17 DC 03/30/17 17:33 999 MLS/HR ECG Indication: other (vaginal bleeding) Rate (beats per minute): 87 Rhythm: normal sinus Findings: no acute ischemic change, no ectopy ED Course 1713: The patient was evaluated in room C9. A complete history and physical exam was performed. 1717: Ordered Toradol 30 mg IV and NSS 1,000 ml @ mls/hr IV 1744: I reassessed the patient at this time. I performed a vaginal exam with a female nurse coffee shop manager present. Please see vaginal exam note. 1904: I reassessed the patient at this time. She is feeling better and resting comfortably. 1943: I spoke with Dr. Hayes, ANALYTICAL LEAD. We discussed the patients case. The patient will follow up with him tomorrow. 1944: Ordered Aygestin 5 mg PO 1949: I reassessed the patient at this time. She is feeling better and resting comfortably. I discussed the results and treatment plan with the patient. I answered all pertaining questions that she had. She expressed understanding and verbalized agreement. The patient will be discharged home. Medical Decision The patient is a 31 year old female who presents to the ED with complaints of vaginal bleeding. Differential diagnoses considered include anemia, dehydration , retained products of conception, coagulopathy, and electrolyte imbalance. There is no leukocytosis. The hemoglobin is around 9, this is about where she was a few days ago. No issues with her platelets. No significant electrolyte abnormality, kidney failure or hepatitis. There is no coagulopathy. Pelvic ultrasound showed normal findings status post , no retained products of conception seen. On exam, the patient was not toxic or febrile. On vaginal exam, she had minimal bleeding from her cervix once the vaginal clot was removed. The patient received IV saline. I discussed the case with the on-call OB physician. He suggested Aygestin, the patient was given 5 mg here orally. The patient is being discharged. She will see the OB doctor tomorrow in the a.m. The patient can return here for any return of heavy vaginal bleeding. She was reassured and discharged home. Of note, I think the syncopal episode was vasovagal from her bleeding and nausea and pain. I did perform an EKG, this showed a normal sinus rhythm, no ischemia, no dysrhythmia. Medication Reconcilliation Current Medication List: was personally reviewed by me Blood Pressure Screening Patient's blood pressure: Normal blood pressure Consults Time Called: 1899 Consulting Physician: Dr. Hayes, ANALYTICAL LEAD Returned Call: [address] Hayes, ANALYTICAL LEAD. We discussed the patients case. The patient will follow up with him tomorrow. Impression Primary Impression: Vaginal bleeding Additional Impressions: S/P Syncope Scribe Attestation The scribe's documentation has been prepared under my direction and personally reviewed by me in its entirety. I confirm that the note above accurately reflects all work, treatment, procedures, and medical decision making performed by me. Departure Information Dispostion Home / Self-Care Referrals No Doctor, Assigned (PCP) Forms HOME CARE DOCUMENTATION FORM, IMPORTANT VISIT INFORMATION, WORK / SCHOOL INSTRUCTIONS Patient Instructions My [facility] Additional Instructions take the hormone tab tomorrow in the am call Dr. Hayes tomorrow around 9 am for an appt return to ER for heavy bleeding like today Problem Qualifiers
[2017-03-30] MEDS ORDERED: IRON5TAB PO (17:33)
[2017-03-30 17:40] LABS: BASO % 0.4 %; BASO ABS # 0.03 K/uL (0-0.2); COMPLETE YES; EOS % 1.6 %; HEMATOCRIT 30.2 % (37-47); IG% 0.1 %; LYMPH % 27.8 %; LYMPH ABS # 2.26 K/uL (1.2-3.4); MEAN CELL VOLUME 76.1 fL (80-100); MEAN CORPUSCULAR HEMOGLOBIN 23.2 pg (25-34); MEAN CORPUSCULAR HGB CONC 30.5 g/dl (32-36); MEAN PLATELET VOLUME 9.9 fL (7.4-10.4); MONO % 6.3 %; NEUT % 63.8 %; PLATELET COUNT 348 K/uL (130-400); RED BLOOD COUNT 3.97 M/uL (4.2-5.4); WHITE BLOOD COUNT 8.12 K/uL (4.8-10.8)
[2017-03-30 17:58] LABS: BUN/CREATININE RATIO 27.7 (10-20); CALCIUM 8.4 mg/dl (8.5-10.1); CREATININE 0.85 mg/dl (0.60-1.20); POTASSIUM 4.1 mmol/L (3.5-5.1)
[2017-03-30 18:00] LABS: ALB/GLOB RATIO 0.8 (0.9-2)
[2017-03-30 18:18] LABS: PARTIAL THROMBOPLASTIN RATIO 0.9; PROTHROMBIN TIME (PATIENT) 10.4 SECONDS (9.0-12.0)
--- NOTE | 2017-03-30 18:49 | DIAGNOSTIC IMAGING REPORT ---
PELVIC COMPLETE NON OB CLINICAL HISTORY: 31 years-old Female presenting with s/p March 03, heavy vaginal bleeding. TECHNIQUE: Real-time grayscale and color and spectral Doppler ultrasound imaging of the pelvis was performed using a transabdominal probe. COMPARISON: 03/25/2017. FINDINGS: Uterus: Heterogeneous with prominent vascularity on color Doppler, expected in the period. Retroverted. Focal hypodensity along the anterior aspect of the lower uterine segment from section with expected seroma/hematoma. The uterus measures 9.7 x 5.2 x 6.9 cm. Endometrial stripe measures 6 mm in thickness. Endometrium without focal increased vascularity to suggest retained products of conception. Cervix normal. Right adnexa: Right ovary normal. Right ovary measures 2.0 x 1.9 x 1.7 cm. Normal color Doppler flow and arterial and venous waveforms within the ovarian parenchyma. Left adnexa: Left ovary normal. Left ovary measures 3.4 x 1.6 x 1.4 cm. Normal color Doppler flow and arterial and venous waveforms within the ovarian parenchyma. Other: No free fluid. IMPRESSION: Expected appearance of the uterus with hyperemia and surgical scar. No evidence of retained products of conception allowing for transabdominal technique. Electronically signed by: Fahad Hughes M.D. 03/30/2017 6:48 PM Dictated Date/Time: 03/30/2017 6:43 PM
[2017-03-30 19:40] VITALS: BP 119/67; PULSE 90; TEMP 36.8; O2SAT 99
[2017-03-30] MEDS ORDERED: NORETHINDRONE ACETATE 5 MG TAB PO STA ×2 (19:45)
[2017-03-30] MEDS ORDERED: NORETHINDRONE ACETATE 5 MG TAB PO SCH (20:15)
== END 2017-03-30 20:16 | disposition home or self-care (01) ==
LOC: EDBD 17:06 → C.EDC 17:07
DX: N93.9 Abnormal uterine and vaginal bleeding, unspecified (principal); R55 Syncope and collapse; Z98.890 Other specified postprocedural states

== ENCOUNTER → 2017-04-02 | Outpatient (CLI) | payer BC, OTHER ==
[~2017-04-02] MED LIST changes: +IRON5TAB PO; -NORETHINDRONE ACETATE 5 MG TAB PO SCH
[2017-04-02 17:20] LABS: HEMATOCRIT 25.2 % (37-47)
== END | disposition home or self-care (01) ==
LOC: C.LAB 16:44
PROVIDERS: ATTEND Obstetrics & Gynecology
DX: N93.8 Other specified abnormal uterine and vaginal bleeding (principal)

== ENCOUNTER 2017-04-09 09:00 | Observation (INO) | payer BC, OTHER ==
[~2017-04-09] VITALS: Ht 167.6 cm; Wt 65.0 kg
--- NOTE | 2017-04-09 09:35 | EMERGENCY ROOM VISIT NOTE ---
History First contact with patient: :10 Chief Complaint: ED VAG BLEEDING Stated Complaint: POST BLEEDING History of Present Illness The patient is a 31 year old female who presents to the Emergency Room with complaints of heavy vaginal bleeding which began approximately 20 minutes prior to arrival. The patient states she had an uncomplicated performed on March 03. The baby was born at 39 weeks without complications. She spent 3.5 days in the hospital after delivery. Since this time, she is seen in the emergency department twice for vaginal bleeding. The patient states she has had 2 ultrasounds which have been unrevealing. She states her blood counts have been low since the , but last week she had outpatient labs which were performed and showed that they were lower than they had been right after the surgery. She was encouraged to take iron, "hormones", and vitamins due to the anemia. She has had some very light bleeding since the delivery, but on occasion she does experience more heavy bleeding. The patient states 20 minutes prior to arrival, she awoke and sat on the toilet. She states the bleeding was "like peeling" and states she passed many blood clots. She spent 5 minutes on the toilet, and states that the bleeding was severe. She is currently wearing a menstrual pad, and states she believes that she has soaked through the pad. Bleeding is associated with some pelvic pain in the center of the abdomen. She describes the pain as crampy adn constant this morning. She has not had abdominal pain associated with the bleeding she has had since delivery. She was encouraged by her fire captain to return immediately to the emergency department if she begins experiencing heavy bleeding again. Review of Systems A complete 10 point review of systems was reviewed with the patient with pertinent positives and negatives as per history of present illness. All else were negative. Past Medical/Surgical History Medical Problems: (1) Episode of heavy vaginal bleeding (2) Migraine (3) Previous section complicating (4) PREVIOUS CESAREANSECTION (5) PREVIOUS CESAREANSECTION (6) Retained products of conception after delivery with complications Social History Smoking Status: Never Smoker Alcohol Use: occasionally Drug Use: none Marital Status: Housing Status: lives with family Occupation Status: [employer] Current/Historical Medications Scheduled Iron-Vitamin C (Iron 100/C), 1 TAB PO DAILY Multivit/Min/Iron/Fol Ac/Pren ( Vitamin), 1 TAB PO QPM Physical Exam Vital Signs Date Time Temp Pulse Resp B/P (MAP) Pulse Ox O2 Delivery O2 Flow Rate FiO2 04/09/17 12:57 36.5 87 18 125/67 100 Oxymask 10 04/09/17 11:33 79 16 125/76 98 04/09/17 11:15 84 18 125/76 100 Room Air 04/09/17 11:04 82 18 132/75 100 Room Air 04/09/17 10:45 85 18 111/56 100 Room Air 04/09/17 10:30 74 18 93/57 100 Room Air 04/09/17 10:00 84 18 98 Room Air 04/09/17 09:13 106 04/09/17 09:13 107 18 146/83 100 Room Air 04/09/17 09:02 36.3 126 22 127/88 100 Room Air Physical Exam VITALS: Vitals are noted on the nurse's note and reviewed by myself. Vital signs stable. GENERAL: This is a 31-year-old female, in no acute distress, nondiaphoretic, well-developed well-nourished. SKIN: The skin was without rashes, erythema, edema, or bruising. There is no tenting of the skin. Capillary reflex less than 2 seconds. HEAD: Normocephalic atraumatic. EARS: External auditory canals clear, tympanic membranes pearly quintero without erythema or effusion bilaterally. EYES: Pupils equal round and reactive to light and accommodation. Conjunctivae without injection, sclerae without icterus. Extraocular movements intact. NOSE: Patent, turbinates without inflammation or discharge. No sinus tenderness. MOUTH: Mucous membranes moist. Tonsils are not enlarged. Pharynx without erythema or exudate. Uvula midline. Airway patent. Tongue does not deviate. NECK: Supple without nuchal rigidity. No lymphadenopathy. No thyromegaly. Cervical spine is nontender. No JVD. HEART: Regular rate and rhythm without murmurs gallops or rubs. LUNGS: Clear to auscultation bilaterally without wheezes, rales or rhonchi. No dullness to percussion. No retractions or accessory muscle use. ABDOMEN: Positive bowel sounds x 4. Normal tympanic percussion. Severe tenderness in the suprapubic region. The uterus does feel enlarged and firm. The abdomen was otherwise soft, nontender, without masses or organomegaly. Prado sign negative. No guarding or rebound tenderness. MUSCULOSKELETAL: No muscle atrophy, erythema, or edema noted. Full range of motion without joint tenderness in all extremities. No tenderness to palpation. Normal gait. Strength 5/5 throughout. NEURO: Patient was alert and oriented to person place and time. Normal sensation to light and sharp touch. Deep tendon reflexes 2+ throughout. No focal neurological deficits. Medical Decision & Procedures ER Provider Diagnostic Interpretation: CBC did show some anemia with hemoglobin of 8.2 and hematocrit of 27.3. No leukocytosis or thrombocytopenia. Coagulation studies were normal. PRP was without renal or electrolyte abnormalities. PELVIC COMPLETE NON OB CLINICAL HISTORY: 31 years-old Female presenting with Heavy vaginal bleeding, 1 month post . TECHNIQUE: Real-time grayscale and color and spectral Doppler ultrasound imaging of the pelvis was performed using a transabdominal probe. COMPARISON: 03/30/2017. FINDINGS: Uterus: Fluid is suggested within the anterior lower uterine segment at the level of the uterine scar. Anteverted. The uterus measures 14 x 6.5 x 6.7 cm. Endometrial stripe measures 30 mm in thickness. Endometrium appears thickened and heterogeneous. Subjacent hyperemia. Minimal focus of color Doppler flow within the endometrium may be present along the anterior fundal region. Evaluation is limited by transabdominal technique. Cervix normal. Right adnexa: Right ovary not visualized. Left adnexa: Left ovary not visualized. Other: No free fluid. IMPRESSION: 1. Examination limited by lack of transvaginal technique. Interval development of significantly thickened and heterogeneous endometrium, which likely relates to prominent blood products in the endometrial cavity. Within limitations of transabdominal technique, suggestion of a focus of abnormal vascularity in the endometrium along the anterior fundal region, which could suggest retained products of conception. 2. Fluid in the the scar, either blood products or seroma. This is slightly greater than what is expected in the post period, however, this may be impacted by the presence of endometrial blood products. The report will be called/faxed according to standard departmental protocol. Electronically signed by: Fahad Hughes M.D. 04/09/2017 11:28 AM Dictated Date/Time: 04/09/2017 11:24 AM Laboratory Results 04/09/17 09:38 Red Blood Count 3.50, Mean Corpuscular Volume 78.0, Mean Corpuscular Hemoglobin 23.4, Mean Corpuscular Hemoglobin Concent 30.0, Mean Platelet Volume 9.7, Neutrophils (%) (Auto) 73.3, Lymphocytes (%) (Auto) 18.6, Monocytes (%) (Auto) 6.5, Eosinophils (%) (Auto) 1.1, Basophils (%) (Auto) 0.4, Neutrophils # (Auto) 5.42, Lymphocytes # (Auto) 1.38, Monocytes # (Auto) 0.48, Eosinophils # (Auto) 0.08, Basophils # (Auto) 0.03 04/09/17 09:38 Test 04/09/17 09:38 White Blood Count 7.40 K/uL (4.8-10.8) Red Blood Count 3.50 M/uL (4.2-5.4) Hemoglobin 8.2 g/dL (12.0-16.0) Hematocrit 27.3 % (37-47) Mean Corpuscular Volume 78.0 fL (80-100) Mean Corpuscular Hemoglobin 23.4 pg (25-34) Mean Corpuscular Hemoglobin Concent 30.0 g/dl (32-36) Platelet Count 348 K/uL (130-400) Mean Platelet Volume 9.7 fL (7.4-10.4) Neutrophils (%) (Auto) 73.3 % Lymphocytes (%) (Auto) 18.6 % Monocytes (%) (Auto) 6.5 % Eosinophils (%) (Auto) 1.1 % Basophils (%) (Auto) 0.4 % Neutrophils # (Auto) 5.42 K/uL (1.4-6.5) Lymphocytes # (Auto) 1.38 K/uL (1.2-3.4) Monocytes # (Auto) 0.48 K/uL (0.11-0.59) Eosinophils # (Auto) 0.08 K/uL (0-0.5) Basophils # (Auto) 0.03 K/uL (0-0.2) RDW Standard Deviation 56.6 fL (36.4-46.3) RDW Coefficient of Variation 20.2 % (11.5-14.5) Immature Granulocyte % (Auto) 0.1 % Immature Granulocyte # (Auto) 0.01 K/uL (0.00-0.02) Hypochromasia PRESENT Anisocytosis PRESENT Prothrombin Time 10.2 SECONDS (9.0-12.0) Prothromb Time International Ratio 1.0 (0.9-1.1) Activated Partial Thromboplast Time 22.4 SECONDS (21.0-31.0) Partial Thromboplastin Ratio 0.9 Anion Gap 8.0 mmol/L (3-11) Estimated GFR () 94.3 Estimated GFR (Non- 81.3 BUN/Creatinine Ratio 16.0 (10-20) Calcium Level 8.8 mg/dl (8.5-10.1) Medications Administered Medications (Trade) Dose Ordered Sig/Natalie Route Start Time Stop Time Status Last Admin Dose Admin Sodium Chloride 1,000 ml @ 999 mls/hr Q1H1M STAT IV 04/09/17 09:59 04/09/17 10:59 DC 04/09/17 10:40 999 MLS/HR Morphine Sulfate (MoRPHine SULFATE INJ) 4 mg NOW STAT IV 04/09/17 09:59 04/09/17 10:11 DC 04/09/17 10:50 4 MG Ondansetron HCl (Zofran Inj) 4 mg NOW STAT IV 04/09/17 09:59 04/09/17 10:11 DC 04/09/17 10:50 4 MG Ondansetron HCl (Zofran Inj) 4 mg ONE PRN IV 04/09/17 11:45 04/09/17 16:45 04/09/17 13:06 4 MG Fentanyl Citrate (Fentanyl Inj) 25 mcg Q5M PRN IV 04/09/17 11:45 04/09/17 16:45 04/09/17 13:07 25 MCG Promethazine HCl 12.5 mg/Sodium Chloride 50.5 ml @ 202 mls/hr ONE PRN IV 04/09/17 11:45 04/09/17 16:45 04/09/17 13:21 202 MLS/HR Misoprostol (Cytotec Tab) 800 mcg NOW ONCE PO 04/09/17 12:30 04/09/17 12:31 DC 04/09/17 12:27 800 MCG ED Course The patient was seen and evaluated as above. IV access was obtained and labs drawn. The patient was given 1 L normal saline solution. I was advised by the ED secretaries that the patient's had contacted her fire captain, and that he would be in to see the patient in approximately 30 minutes. The patient did request pain medication. I ordered 4 mg of morphine with 4 mg Zofran. I was contacted by the nursing dining room supervisor that the nurses were very concerned regarding the patient's condition. I reevaluated the patient, and at this time , her was at bedside. The and patient state she is bleeding significantly. Nursing staff was attempting to initiate a second IV, and had started another liter of normal saline solution through the first IV. I was advised that the patient began experiencing dizziness, nausea, and was presyncopal. The patient's blood pressure had dropped to 93/57 for a few minutes, then did increase again to >100 systolic. On my reassessment of the patient, she appeared pale, but stable. She was given pain and nausea medication at this time. Dr. Hayes did come in to see the patient, and did evaluate her at bedside at this time. Ultrasound was in the room, and based on the ultrasound, Dr. Hayes states he will be taking the patient to the operating room for D&C. The patient was sent to the OR at this time. Please see Dr. Hayes's note for further management and care. Medical Decision The patient presented today for the third time since her section complaining of vaginal bleeding. She states the bleeding is extremely heavy. She has not had a syncopal episode. She did have repeat H&H completed last week , which was lower than her hemoglobin emergency department. Throughout her stay , the patient was stable, however her symptoms progressed while she was here. Based on my suspicion for retained products of conception, labs and ultrasound were ordered. Dr. Hayes head or any been contacted by the patient's and was in route to the emergency department to see the patient. She was taken to surgery for D&C due to retained products of conception noted on ultrasound. Differential diagnosis includes dysfunctional uterine bleeding, hemorrhage, retained products of conception, ectopic , intrauterine , miscarriage, menstrual bleeding, malignancy, and others Medication Reconcilliation Current Medication List: was personally reviewed by me Blood Pressure Screening Patient's blood pressure: Low blood pressure Impression Primary Impression: Retained products of conception after delivery with complications Departure Information Dispostion Being Evaluated By Surgeon Condition FAIR Referrals No Doctor, Assigned (PCP) Kian Hayes M.D. Patient Instructions My [facility]
[2017-04-09 09:59] LABS: BASO % 0.4 %; BASO ABS # 0.03 K/uL (0-0.2); EOS % 1.1 %; EOS ABS # 0.08 K/uL (0-0.5); HEMATOCRIT 27.3 % (37-47); HEMOGLOBIN 8.2 g/dL (12.0-16.0); IG# 0.01 K/uL (0.00-0.02); LYMPH % 18.6 %; LYMPH ABS # 1.38 K/uL (1.2-3.4); MEAN CORPUSCULAR HEMOGLOBIN 23.4 pg (25-34); MEAN PLATELET VOLUME 9.7 fL (7.4-10.4); MONO % 6.5 %; MONO ABS # 0.48 K/uL (0.11-0.59); NEUT % 73.3 %; NEUT ABS # 5.42 K/uL (1.4-6.5); PLATELET COUNT 348 K/uL (130-400); RED CELL DISTRIBUTION WIDTH CV 20.2 % (11.5-14.5); RED CELL DISTRIBUTION WIDTH SD 56.6 fL (36.4-46.3)
[2017-04-09] MEDS ORDERED: ONDANSETRON INJ 2 MG/ML 2 ML VIAL IV STA (09:59)
[2017-04-09] MEDS ORDERED: SODIUM CHLORIDE 0.9% 1000ML 1,000 ML IV STA (09:59)
[2017-04-09] MEDS ORDERED: MoRPHine SULFATE 4 MG/ML 1 ML CARP\\VIAL IV STA (09:59)
[2017-04-09 10:15] LABS: BLOOD UREA NITROGEN 15 mg/dl (7-18); CALCIUM 8.8 mg/dl (8.5-10.1); CARBON DIOXIDE 26 mmol/L (21-32); CREATININE 0.93 mg/dl (0.60-1.20); GLUCOSE 86 mg/dl (70-99); POTASSIUM 3.5 mmol/L (3.5-5.1); SODIUM 139 mmol/L (136-145)
[2017-04-09 10:19] LABS: PTT PATIENT 22.4 SECONDS (21.0-31.0)
--- NOTE | 2017-04-09 11:19 | HISTORY & PHYSICAL EXAMINATION ---
DATE OF ADMISSION: 04/09/2017 CHIEF COMPLAINT: Anemia, heavy vaginal bleeding with clotting. HISTORY OF PRESENT ILLNESS: The patient is a 31-year-old 4, para 3. She has had 3 previous C-sections and 1 spontaneous AB. Her last was done at 39 weeks, it was repeat on 03/03/2017. It should be noted that her preoperative hemoglobin was only about 8 and she was placed on iron and vitamins. Postoperatively about 10 days or so later she had an episode of heavy bleeding in which she dropped her hemoglobin. She was seen in the Emergency Room, the bleeding subsided spontaneously and her hemoglobin then after that continued to rise. She then did well until about 10 days prior to admission where she had an extremely heavy episode of heavy bleeding and came to the Emergency Room, now dropped her hemoglobin down to around 8. That subsided spontaneously. She was given norethindrone 5 mg tablets p.o. daily, she did well until about 3 hours prior to admission when she began soaking a pad an hour and passing some large clots. An abdominal ultrasound performed in the Emergency Room suite showed a thickened endometrium of 3 cm and bleeding rate was about a pad an hour. Hemoglobin was about 8.2. She was scheduled for outpatient D&C for retained products of conception. PAST MEDICAL HISTORY: She has 3 girls. ALLERGIES: She has no known drug allergies. PAST SURGICAL HISTORY: She has had 3 C-sections, D&C. MEDICAL HISTORY: No history of rheumatic fever, heart disease, heart murmur, diabetes, tuberculosis. SOCIAL HISTORY: No smoking. No alcohol intake. 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 FAMILY HISTORY: Mom is 55 in good health. Father 73, has had 2 heart attacks. He has had heart disease and he has esophageal cancer. One brother 5 years younger in good health. REVIEW OF SYSTEMS: HEAD: No symptoms of frequent or severe headaches. EYES: No symptoms of blurred vision, double vision. EARS: No symptoms of frequent ear infections, difficulty hearing. NOSE: No symptoms of frequent nosebleeds, difficulty breathing through her nose. THROAT: No symptoms of frequent or severe sore throat, difficulty swallowing. RESPIRATORY SYSTEM: No history of asthma, chest pain, shortness of breath. PHYSICAL EXAMINATION: GENERAL: Well-developed, well-nourished 31-year-old white female, alert, oriented x3 and cooperative in no acute distress, appears stated age. EYES: Conjunctivae are pink. Sclerae white. No evidence of jaundice. EARS: Had normal light reflex bilaterally. NOSE: Had normal mucosa. Septum is midline. There were no polyps. THROAT: No erythema or evidence of infection. Teeth are in good state of repair. HEAD: Was normocephalic, normal distribution of hair. NECK: Supple. Trachea midline. Thyroid is not enlarged. There is no adenopathy appreciated. Both carotids are of good intensity. CHEST: Clear to auscultation and percussion. No wheezes, rales or rhonchi appreciated. HEART: Regular rhythm. S1, S2 are normal. BREAST EXAMINATION: Normal. ABDOMEN: Soft and nontender. PELVIC EXAMINATION: Revealed heavy vaginal bleeding with clotting. A bedside ultrasound revealed a thickened endometrium. There is no CVA tenderness, no calf tenderness. IMPRESSIONS OF THIS CASE: Status post 3 C-sections, status post D&E, anemia, heavy vaginal bleeding, retained products of conception.
[2017-04-09] MEDS ORDERED: FENTANYL CITRATE INJ 50 MCG/1 ML 2 ML VIAL ONE (11:28)
[2017-04-09] MEDS ORDERED: DEXAMETHASONE SOD INJ 4 MG/ML VIAL ONE (11:28)
[2017-04-09] MEDS ORDERED: PROPOFOL IV EMULSION 10 MG/ML 20 ML VIAL IV ONE (11:28)
[2017-04-09] MEDS ORDERED: ONDANSETRON INJ 2 MG/ML 2 ML VIAL ONE (11:28)
[2017-04-09] MEDS ORDERED: MIDAZOLAM HCL 1 MG/ML 2ML VIAL ONE (11:28)
[2017-04-09] MEDS ORDERED: LIDOCAINE HCL 2% 2 ML VIAL (20MG/ML) ONE (11:28)
--- NOTE | 2017-04-09 11:29 | DIAGNOSTIC IMAGING REPORT ---
PELVIC COMPLETE NON OB CLINICAL HISTORY: 31 years-old Female presenting with Heavy vaginal bleeding, 1 month post . TECHNIQUE: Real-time grayscale and color and spectral Doppler ultrasound imaging of the pelvis was performed using a transabdominal probe. COMPARISON: 03/30/2017. FINDINGS: Uterus: Fluid is suggested within the anterior lower uterine segment at the level of the uterine scar. Anteverted. The uterus measures 14 x 6.5 x 6.7 cm. Endometrial stripe measures 30 mm in thickness. Endometrium appears thickened and heterogeneous. Subjacent hyperemia. Minimal focus of color Doppler flow within the endometrium may be present along the anterior fundal region. Evaluation is limited by transabdominal technique. Cervix normal. Right adnexa: Right ovary not visualized. Left adnexa: Left ovary not visualized. Other: No free fluid. IMPRESSION: 1. Examination limited by lack of transvaginal technique. Interval development of significantly thickened and heterogeneous endometrium, which likely relates to prominent blood products in the endometrial cavity. Within limitations of transabdominal technique, suggestion of a focus of abnormal vascularity in the endometrium along the anterior fundal region, which could suggest retained products of conception. 2. Fluid in the the scar, either blood products or seroma. This is slightly greater than what is expected in the post period, however, this may be impacted by the presence of endometrial blood products. The report will be called/faxed according to standard departmental protocol. Electronically signed by: Fahad Hughes M.D. 04/09/2017 11:28 AM Dictated Date/Time: 04/09/2017 11:24 AM
[2017-04-09] MEDS ORDERED: ONDANSETRON INJ 2 MG/ML 2 ML VIAL IV PRN ×2 (11:45→13:00)
[2017-04-09] MEDS ORDERED: FENTANYL CITRATE INJ 50 MCG/1 ML 2 ML VIAL IV PRN (11:45)
[2017-04-09] MEDS ORDERED: KETOROLAC TROMETHAMINE 30 MG/ML VIAL IV. PRN (11:45)
[2017-04-09] MEDS ORDERED: PROMETHAZINE HCL INJ 12.5 MG in SODIUM CHLORIDE 0.9% 50ML 50 ML IV PRN (11:45)
[2017-04-09] MEDS ORDERED: ATROPINE SULFATE 0.1 MG/ML 5ML SYR IV PRN (11:45)
[2017-04-09] MEDS ORDERED: NURSING VERBAL MED ORDER ONE ×2 (12:30→15:00)
[2017-04-09] MEDS ORDERED: MISOPROSTOL 200 MCG TAB PO ONE (12:30)
[2017-04-09] MEDS ORDERED: OXYTOCIN INJ 10 UNITS/ML VIAL ONE (12:33)
[2017-04-09] MEDS ORDERED: IBUPROFEN 600 MG TAB PO PRN (13:00)
[2017-04-09] MEDS ORDERED: OXYCODONE/ACETAMINOPHEN 5-325 TAB PO PRN (13:00)
[2017-04-09] MEDS ORDERED: HYDROCODONE/ACETAMIN 5/325MG TAB PO PRN ×2 (13:00)
--- NOTE | 2017-04-09 13:03 | [facility] Post Operative Brief Note ---
Immediate Operative Summary Operative Date Apr 09, 2017. Pre-Operative Diagnosis Anemia, heavy bleeding, retained products of conception Post-Operative Diagnosis Same Procedure(s) Performed Dilation and [place] Surgeon Dr Hayes Hangersmith Surgeon(s) NA Estimated Blood Loss 400ml Findings RETAINED PRODUCTS OF CONCEPTION Specimens A. products of conception Complication(s) None Disposition Recovery Room / PACU
[2017-04-09] MEDS ORDERED: EpHEDrine SULFATE INJ 50 MG/ML AMP ONE (13:05)
[2017-04-09] MEDS ORDERED: PHENYLEPHRINE HCL INJ 10 MG/ML VIAL ONE (13:05)
[2017-04-09] MEDS ORDERED: METHYLERGONOVINE MALEATE 0.2 MG/ML AMP ONE (13:09)
[2017-04-09] MEDS ORDERED: CARBOPROST TROMETHAMINE 250 MCG/ML AMP ONE (13:09)
--- NOTE | 2017-04-09 13:13 | OPERATIVE REPORT ---
DATE OF OPERATION: 04/09/2017 PROCEDURE: This is an operative notation of a sharp curettage of endometrial cavity. INDICATIONS FOR SURGERY: Heavy bleeding, preoperative hemoglobin 8.2. POSTOPERATIVE DIAGNOSIS: Same. PATHOLOGY: Pending. SURGEON: Dr. Hayes. ESTIMATED BLOOD LOSS: 400 mL. ANESTHESIA: General. OPERATIVE FINDINGS AND PROCEDURE: The patient was brought to the OR table, correctly identified by armband and conversation. General anesthesia was administered. Perineum and vagina were painted with Betadine paint, draped in usual sterile fashion. Some large clots were expressed from the vaginal canal. Bryant catheter was used to empty the bladder. Careful pelvic exam under anesthesia revealed a retroverted uterus of approximately 10-11 weeks' gestational size. Weighted speculum was placed in the posterior vagina. Anterior lip of the cervix was grasped with an Allis at 12 o'clock. Cervix was dilated with graduated dilators. A large curette was placed in the uterine cavity. All 4 quadrants of the uterus were thoroughly and systematically cureted. This was productive of some tissue and some organized clot. We did this and we did a bimanual massage on the uterus. After taking the instruments out and repositioned the entrance back in and then curetted 2 more times eventually grating all 4 quadrants of the uterus. We also gave her IV Pitocin, rectal Cytotec and Methergine and Hemabate along with the bimanual massage. With this, the uterus contracted nicely and hemostasis was good. We watched the bleeding for good 6-7 minutes after we were done and once again hemostasis looked good. Instruments were removed. The patient tolerated the procedure well and left the OR in good condition. I attest to the content of the Intraoperative Record and any orders documented therein. Any exception s are noted below.
[2017-04-09] MEDS ORDERED: IV FLUIDS COMPLETED PRN (13:45)
--- NOTE | 2017-04-09 13:56 | Anesthesiology Progress Note ---
Anesthesia Post Op Note Date & Time Apr 09, 2017 at 13:56 Vital Signs Pain Intensity: 3 Vital Signs Past 12 Hours Date Time Temp Pulse Resp B/P (MAP) Pulse Ox O2 Delivery O2 Flow Rate FiO2 04/09/17 13:45 37.0 79 13 125/65 100 Room Air 04/09/17 13:35 36.9 77 13 124/74 100 Room Air 04/09/17 13:25 93 19 137/81 100 Room Air 04/09/17 13:15 85 20 122/69 100 Oxymask 10 04/09/17 13:05 89 19 123/73 100 Oxymask 10 04/09/17 12:57 36.5 87 18 125/67 100 Oxymask 10 04/09/17 11:33 79 16 125/76 98 04/09/17 11:15 84 18 125/76 100 Room Air 04/09/17 11:04 82 18 132/75 100 Room Air 04/09/17 10:45 85 18 111/56 100 Room Air 04/09/17 10:30 74 18 93/57 100 Room Air 04/09/17 10:00 84 18 98 Room Air 04/09/17 09:13 106 04/09/17 09:13 107 18 146/83 100 Room Air 04/09/17 09:02 36.3 126 22 127/88 100 Room Air Notes Mental Status: alert / awake / arousable, participated in evaluation Pt Amnestic to Procedure: Yes Nausea / Vomiting: adequately controlled Pain: adequately controlled Airway Patency, RR, SpO2: stable & adequate BP & HR: stable & adequate Hydration State: stable & adequate Anesthetic Complications: no major complications apparent
[2017-04-09 14:35] VITALS: BP 124/74; PULSE 86; TEMP 37.7; O2SAT 100
--- NOTE | 2017-04-09 14:35 | NUR ---
Patient received to room 480-2 via bed from PACU. VS WNL. IV SL. Pain rating a 3 out of 10 in abdomen. Patient given sips of water. Oriented to room and floor. and present in the room at patients bedside. Call antoine in reach. Will continue to monitor.
[2017-04-09 14:52] LABS: HEMATOCRIT 30.8 % (37-47); HEMOGLOBIN 9.9 g/dL (12.0-16.0)
[2017-04-09 15:05] VITALS: BP 129/76; PULSE 86; TEMP 37.4; O2SAT 99
[2017-04-09] MEDS ORDERED: MEPERIDINE HCL 25 MG/ML CARP IV PRN (15:15)
[2017-04-09] MEDS ORDERED: OXYTOCIN INJ 20 UNITS in LACTATED RINGER'S 1000ML 1,000 ML IV SCH (15:15)
[2017-04-09] MEDS ORDERED: SODIUM CHLORIDE 0.9% 1000ML 1,000 ML IV SCH (15:30)
[2017-04-09 15:35] VITALS: BP 122/65; PULSE 90; TEMP 37.7; O2SAT 99
[2017-04-09 16:30] VITALS: BP_SYST 122; BP_SYST 125; BP_DIAS 65; BP_DIAS 71; PULSE 90; TEMP 37.5; TEMP 37.7; O2SAT 99; Ht 167.6 cm; Wt 65.0 kg
[2017-04-09] MEDS: METHYLERGONOVINE MALEATE 0.2 MG/ML AMP IM SCH ×2 (16:46→20:39)
[2017-04-09 17:30] VITALS: BP 128/79; PULSE 83; TEMP 37.5; O2SAT 98
[2017-04-09] MEDS ORDERED: INFLUENZA VIRUS QUAD VACCINE 0.5 ML SYR IM. ONE (18:00)
[2017-04-09] MEDS ORDERED: INFLUENZA ADMINISTRATION CHARGE ONE (18:00)
--- NOTE | 2017-04-09 18:00 | NUR ---
Pt tolerating fluids well. Pt has good bowel sounds and is passing gas. Regular tray ordered for supper. Vital signs stable and WNL. and children at pts bedside visiting. Will continue to monitor.
[2017-04-09 18:16] LABS: HEMATOCRIT 28.5 % (37-47); HEMOGLOBIN 9.4 g/dL (12.0-16.0)
--- NOTE | 2017-04-09 19:19 | NUR ---
Patient refusing SCDs at this time.
[2017-04-09 19:30] VITALS: BP 122/72; PULSE 81; TEMP 36.9; O2SAT 98
--- NOTE | 2017-04-09 21:00 | NUR ---
DENIES PAIN. VAG BLEEDING WNL. NO CLOTS. CHANGED PAD AT 2030 FOR 1/2 PAD OF SANGUINOUS DRAINAGE. IVF D/NANI SALINE LOCK INTACT X 2.
--- NOTE | 2017-04-09 23:00 | NUR ---
SLEEPING. NO SX OF DISTRESS. HAS BEEN VOIDING WITHOUT DIFFICULTY.
[2017-04-10 00:15] VITALS: BP 105/20; PULSE 80; TEMP 37; O2SAT 98
[2017-04-10] MEDS: METHYLERGONOVINE MALEATE 0.2 MG/ML AMP IM SCH ×4 (00:16→12:25)
--- NOTE | 2017-04-10 01:00 | NUR ---
Resting quietly in bed. Used breast pump at 0025 and pump 5oz of breastmilk. Scant vag drainage. Denies pain. No dizziness when OOB.
--- NOTE | 2017-04-10 03:00 | NUR ---
Sleeping at intervals. Voiding QS. No sx of discomfort.
[2017-04-10 04:15] VITALS: BP 109/63; PULSE 73; TEMP 36.7; O2SAT 97
--- NOTE | 2017-04-10 05:00 | NUR ---
Resting quietly. Vag bleeding scant. Breastpumping at present time.
[2017-04-10 06:10] LABS: HEMOGLOBIN 8.5 g/dL (12.0-16.0)
[2017-04-10 08:30] VITALS: BP 108/65; PULSE 79; TEMP 36.8; O2SAT 98
--- NOTE | 2017-04-10 08:38 | Anesthesiology Progress Note ---
Anesthesia Post Op Note Date & Time Apr 10, 2017 at 08:37 Vital Signs Pain Intensity: 3.0 Vital Signs Past 12 Hours Date Time Temp Pulse Resp B/P (MAP) Pulse Ox O2 Delivery O2 Flow Rate FiO2 04/10/17 04:15 36.7 73 20 109/63 (78) 97 Room Air 04/10/17 00:15 37.0 80 20 105/20 (48) 98 Room Air 04/10/17 00:15 98 Room Air Notes Mental Status: alert / awake / arousable, participated in evaluation Pt Amnestic to Procedure: Yes Nausea / Vomiting: adequately controlled Pain: adequately controlled Airway Patency, RR, SpO2: stable & adequate BP & HR: stable & adequate Hydration State: stable & adequate Anesthetic Complications: no major complications apparent
--- NOTE | 2017-04-10 09:00 | NUR ---
OBS: OOB w/o dizziness. Vaginal bleeding small, pink. VSS.
--- NOTE | 2017-04-10 11:43 | Progress Note ---
Subjective Apr 10, 2017. Subjective conversation w/ patient Ambulation: ambulating normally Voiding: no voiding problems Passing Gas: Yes Diet Tolerance: Regular Diet Lochia: Small Feeding Type: Breast Feeding Review of Systems Constitutional: + fever Objective Vital Signs Date Time Temp Pulse Resp B/P (MAP) Pulse Ox O2 Delivery O2 Flow Rate FiO2 04/10/17 08:30 36.8 79 18 108/65 (79) 98 Room Air 04/10/17 08:30 98 Room Air 04/10/17 04:15 36.7 73 20 109/63 (78) 97 Room Air 04/10/17 00:15 37.0 80 20 105/20 (48) 98 Room Air 04/10/17 00:15 98 Room Air 04/09/17 19:30 36.9 81 20 122/72 (89) 98 Room Air 04/09/17 19:30 98 Room Air 04/09/17 17:30 37.5 83 14 128/79 (95) 98 Room Air 04/09/17 16:30 99 Room Air 04/09/17 16:30 37.7 90 18 122/65 99 Room Air 04/09/17 16:30 37.5 90 14 125/71 (89) 99 Room Air 04/09/17 15:35 37.7 90 18 122/65 (84) 99 Room Air 04/09/17 15:05 37.4 86 18 129/76 (93) 99 Room Air 04/09/17 14:35 100 Room Air 04/09/17 14:35 37.7 86 18 124/74 (91) 100 Room Air 04/09/17 14:35 100 Room Air 04/09/17 14:15 77 13 123/63 100 Room Air 04/09/17 14:05 37.0 78 15 122/70 100 Room Air 04/09/17 13:55 37.1 74 15 127/70 100 Room Air 04/09/17 13:45 37.0 79 13 125/65 100 Room Air 04/09/17 13:35 36.9 77 13 124/74 100 Room Air 04/09/17 13:25 93 19 137/81 100 Room Air 04/09/17 13:15 85 20 122/69 100 Oxymask 10 04/09/17 13:05 89 19 123/73 100 Oxymask 10 04/09/17 12:57 36.5 87 18 125/67 100 Oxymask 10 Physical Exam General Appearance: WELL-APPEARING Abdomen: normal bowel sounds, non tender Fundus: Firm, Non-Tender Extremities: no pedal edema, no calf tenderness Laboratory Results Last 24 Hours Test 04/09/17 14:44 04/09/17 18:00 04/10/17 05:55 Hemoglobin 9.9 g/dL 9.4 g/dL 8.5 g/dL Hematocrit 30.8 % 28.5 % 26.0 % Assessment and Plan Problem List Medical Problems: (1) Dysfunctional uterine bleeding Status: Acute (2) Syncope Status: Acute (3) Vaginal bleeding Status: Acute Social History Problems: (1) S/P Status: Acute Post-Op Day#: 1 Continue Routine Care: post operative Hg 8.5 vaginal bleeding minimal
[2017-04-10 11:45] VITALS: BP 117/71; PULSE 66; TEMP 36.8; O2SAT 98
--- NOTE | 2017-04-10 11:45 | Discharge Instructions ---
Discharge Instructions Date of Service Apr 10, 2017. Admission Reason for Admission: Post Bleeding Discharge Discharge Diagnosis / Problem: anemia heavy vaginal bleeding Discharge Goals Goal(s): Routine recovery after surgery Activity Recommendations Activity Limitations: as noted below ACTIVITY RECOMMENDATIONS: * Avoid tampons, douching, hot tubs, pools, and intercourse until bleeding has stopped. * May shower as usual. * No strenuous activity for 24-48 hours. After 24-48 hours, you may do anything you feel like doing (driving and sports are okay). SPECIAL CARE INSTRUCTIONS: Special Diet: * Mild nausea may occur in the immediate post-operative period. * Take clear liquids such as tea, cola or bouillon until all nausea has subsided; you may then resume your normal diet. Special Care: * Light bleeding and vaginal spotting can last from a few days to 3-4 weeks. Call your doctor if bleeding becomes heavier than the heaviest part of your period. * Check your temperature twice a day for one week. If it goes above 100.4 degrees Fahrenheit (38.0 Celsius), notify your doctor. * Call your doctor's office for an appointment for 6 weeks after your surgery. FOLLOW-UP VISIT: Call your doctor's office for an appointment for 6 weeks after your surgery. . Instructions / Follow-Up Instructions / Follow-Up ACTIVITY RECOMMENDATIONS: * Avoid tampons, douching, hot tubs, pools, and intercourse until bleeding has stopped. * May shower as usual. * No strenuous activity for 24-48 hours. After 24-48 hours, you may do anything you feel like doing (driving and sports are okay). SPECIAL CARE INSTRUCTIONS: Special Diet: * Mild nausea may occur in the immediate post-operative period. * Take clear liquids such as tea, cola or bouillon until all nausea has subsided; you may then resume your normal diet. Special Care: * Light bleeding and vaginal spotting can last from a few days to 3-4 weeks. Call your doctor if bleeding becomes heavier than the heaviest part of your period. * Check your temperature twice a day for one week. If it goes above 100.4 degrees Fahrenheit (38.0 Celsius), notify your doctor. * Call your doctor's office for an appointment for 6 weeks after your surgery. FOLLOW-UP VISIT: Call your doctor's office for an appointment for 6 weeks after your surgery. Current Hospital Diet Patient's current hospital diet: Regular Diet Discharge Diet Recommended Diet: Regular Diet Procedures Procedures Performed: Dilation and Currettage Pending Studies Studies pending at discharge: no Medical Emergencies . Who to Call and When: Medical Emergencies: If at any time you feel your situation is an emergency, please call 911 immediately. . Non-Emergent Contact Non-Emergency issues call your: Rug Weaver Call Non-Emergent contact if: temperature is above 100.5 . . "Provider Documentation" section prepared by Kian Hayes. . VTE Core Measure Inpt VTE Proph given/why not?: Treatment not indicated
--- NOTE | 2017-04-10 12:35 | DISCHARGE SUMMARY ---
HOSPITAL COURSE: Mrs. Walker had undergone her third section on 03/03/2017. At the time of admission for the , her hemoglobin was low, was about 8 grams. Vaginal bleeding at the time of was minimal and she did well postoperatively. She was placed on iron and vitamins; however, about a week to 10 days, she had an episode of heavy bleeding where she was passing clots and came in to the Emergency Room. At that time, the bleeding resolved spontaneously. Ultrasound showed no retained products of conception. She was sent home. Her hemoglobin got up to about 9 and then about 10 days later, she had a second episode of bleeding, which also resolved on its own and showed no retained products of conception. At this time, she was started on norethindrone. On the norethindrone, she did well. Her hemoglobin was rising and then about 10 days later, she came in with her third bleed. At the time of admission, her hemoglobin was 8.2, hematocrit 27.3; however, when that was taken, she was actively bleeding. Ultrasound at this time did show a thickened endometrium, lot of it was probably clot. She was taken to the OR where she underwent a D&C and she had administered multiple uterotonics including 800 mcg of rectal Cytotec, Hemabate, IV Pitocin. Estimated blood loss at the time of surgery was 400 mL and this did not include bleeding that she had at home or when she came in to the Emergency Room. She was given 2 units of packed cells. Immediately after the 2 units, hemoglobin went up to 9.9, but it soon dropped to 9.4 and on the day of discharge, hemoglobin was 8.5, so was essentially the same when she came in. On the day of discharge, she was ambulating well, eating well. She continued to breastfeed. The bleeding continued to decrease after the surgery and this was despite even the breast feeding. She was discharged to be followed in home and office and given the usual instructions to return if the bleeding started or she started passing any clots. She will continue on her vitamins and also supplemental iron with vitamin C. She was told to restart the norethindrone in about a week and to make an appointment to be seen in the office in the beginning of the new year.
[2017-04-10 13:20] VITALS: BP 117/71; PULSE 66; TEMP 36.8; O2SAT 98
--- NOTE | 2017-04-10 13:20 | NUR ---
Pt reports feeling tired. States she feels well enough to go home. Pt discussed pain in chest with inspiration with Dr. Hayes. Discharge inst given w/ verbalized understanding. D/C'd via w/c in care of .
== END 2017-04-10 13:20 | disposition home or self-care (01) ==
LOC: C.EDB 09:01 → C.MS4N 13:00 → ENRESERV 14:10
PROVIDERS: ADMIT Obstetrics & Gynecology; ATTEND Obstetrics & Gynecology
DX: O72.1 Other immediate postpartum hemorrhage (principal); D64.9 Anemia, unspecified